=== PATIENT | female | born 1950 | race Caucasian/White ===

== ENCOUNTER → 2024-01-07 07:02 | Outpatient (REF) | payer MEDICARE, OTHER, SELFPAY | LOC: RAD 07:02 | PROVIDERS: ATTENDING PHYSICIAN Nurse Practitioner Family | DX: R19.5 Other fecal abnormalities (principal); D63.8 Anemia in other chronic diseases classified elsewhere; R10.9 Unspecified abdominal pain; R19.4 Change in bowel habit | CPT/HCPCS: 74176 ==

== ENCOUNTER → 2024-03-12 | Outpatient (REF) | payer MEDICARE, OTHER, SELFPAY | LOC: DHSLP | PROVIDERS: ATTENDING PHYSICIAN Internal Medicine; FAMILY PHYSICIAN Emergency Medicine | DX: G47.33 Obstructive sleep apnea (adult) (pediatric) (principal) | CPT/HCPCS: 95800 ==

== ENCOUNTER → 2024-03-25 15:53 | Outpatient (REF) | payer MEDICARE, OTHER, SELFPAY ==
[2024-03-25 12:01] LABS: % Basophils 0.2 % (0-2); % Immature Granulocytes 0.1 % (0-0.5); % Lymphocytes 16.6 % (20.5-51.1); % Monocytes 9.1 % (1.7-9.3); Absolute Eosinophils 0.1 10^3/uL (0-0.7); Absolute Lymphocytes 1.3 10^3/uL (1.2-3.4); Absolute Monocytes 0.7 10^3/uL (0.1-0.6); Absolute Neutrophils 5.9 10^3/uL (1.4-6.5); Hemoglobin 10.1 g/dL (12.0-16.0); Mean Corp Hgb Conc. 33.7 g/dL (33.0-37.0); Mean Corpuscular Hgb 32.7 pg (27.0-31.0); Mean Corpuscular Volume 97.1 fL (81.0-99.0); Mean Platelet Volume 10.5 fL (7.4-10.4); Platelet Count 233 10^3/uL (130-400); Red Blood Cell Count 3.09 10^6/uL (4.20-5.40); Red Cell Dist. Width 13.2 % (11.5-14.5); White Blood Cell Count 8.1 10^3/uL (4.8-10.8)
[2024-03-25 12:49] LABS: Vitamin D, 25-OH*** 62.9 ng/mL (30-80)
== END ==
LOC: OIDL 15:53
PROVIDERS: ATTENDING PHYSICIAN Internal Medicine Hematology & Oncology
DX: D50.9 Iron deficiency anemia, unspecified (principal); N18.30 Chronic kidney disease, stage 3 unspecified
CPT/HCPCS: 82306; 85025

== ENCOUNTER 2024-03-27 03:30 | Inpatient (IN) | payer MEDICARE, OTHER, SELFPAY ==
[2024-03-26 20:47] VITALS: BP 147/65
[2024-03-26] MEDS: ZOFRAN 4 MG IV (21:22)
[2024-03-26 21:27] LABS: % Basophils 0.4 % (0-2); % Eosinophils 0.4 % (0-6); % Immature Granulocytes 0.7 % (0-0.5); % Monocytes 3.9 % (1.7-9.3); % Neutrophils 89.6 % (42.2-75.2); Absolute Eosinophils 0.1 10^3/uL (0-0.7); Absolute Immature Granulocytes 0.1 10^3/uL (0-0.05); Absolute Lymphocytes 0.6 10^3/uL (1.2-3.4); Absolute Monocytes 0.4 10^3/uL (0.1-0.6); Hematocrit 27.9 % (37.0-47.0); Mean Corp Hgb Conc. 35.8 g/dL (33.0-37.0); Mean Corpuscular Hgb 32.8 pg (27.0-31.0); Mean Corpuscular Volume 91.5 fL (81.0-99.0); Mean Platelet Volume 10.7 fL (7.4-10.4); Nucleated Red Blood Cells % 0 %; Platelet Count 222 10^3/uL (130-400); Red Blood Cell Count 3.05 10^6/uL (4.20-5.40); Red Cell Dist. Width 13.2 % (11.5-14.5); White Blood Cell Count 11.2 10^3/uL (4.8-10.8)
[2024-03-26] MEDS: NSS 1000 IV (21:28)
[2024-03-26 21:38] LABS: ALT (SGPT) 18 U/L (0-35); AST (SGOT) 20 U/L (14-36); Albumin 4.2 g/dl (3.5-5.0); Alkaline Phosphatase 96 U/L (38-126); Blood Urea Nitrogen 44 mg/dl (7-17); Calcium 9.8 mg/dl (8.4-10.2); Carbon Dioxide 23 mmol/L (22-30); Chloride 101 mmol/L (98-107); Glucose 136 mg/dl (70-99); Potassium 4.5 mmol/L (3.5-5.1); Sodium 136 mmol/L (135-145); Total Bilirubin 0.6 mg/dl (0.2-1.3); Total Protein 6.8 g/dl (6.3-8.2); eGFR 36.12
[2024-03-26 21:39] VITALS: BMI 32.0
[2024-03-26 22:00] VITALS: BP 135/61
[2024-03-26 23:33] LABS: Urine Albumin Trace (Neg - Trace); Urine Bilirubin Negative (Negative); Urine Character Clear (Clear); Urine Color Yellow; Urine Glucose Negative (Negative); Urine Ketone Negative (Negative); Urine Leukocyte Trace (Negative); Urine Nitrite Negative (Negative); Urine Occult Blood Negative (Negative); Urine Specific Gravity 1.005 (<1.030); Urine Urobilinogen Negative (Neg - 1+)
[2024-03-26 23:43] LABS: Urine Red Blood Cell None Seen /HPF (0-2)
[2024-03-27] VITALS (8 sets, daily range): BP systolic 96–138; BP diastolic 44–71; BMI 31.1
--- NOTE | 2024-03-27 01:42 | ED.GENMED ---
History of Present Illness
General
Chief Complaint: Fever
Source: patient and family
Exam Limitations: clinical condition
Time Seen by Provider: 03/26/24 21:07
Travel History
Have you had any contact with someone who has COVID-19?: No
Do you have any symptoms of coronavirus? Fever > 100 degrees, chills, cough, shortness of breath, sore throat, loss of taste or smell, muscle aches, or headache?: No
History of Present Illness
History of Present Illness:
74-year-old female with a history of hypertension, hyperlipidemia, diabetes who presents with fever. The patient states that she has nausea as well as some abdominal discomfort. She had an iron infusion done yesterday for anemia. No back pain.
No neck pain. No rash. Patient denies cough. No runny nose or congestion
Past History
Past History
ED Past Medical History: Arrthythmia, HTN, Hypercholesterolemia and IDDM
ED Past Surgical History: Tonsilectomy
Phy Exam
Physical Exam
Physical Exam:
CONSTITUTIONAL Patient alert and oriented to person, place and time. ill-appearing. Vital signs reviewed.
HEAD atraumatic, normocephalic.
EYES eyelids normal to inspection, Pupils equally round and reactive to light, Extraocular muscles intact, Conjunctiva normal, Sclera normal.
NECK normal range of motion, Trachea midline, no jugular venous distention.
RESPIRATORY CHEST No respiratory distress noted, Chest expansion equal, Bilateral breath sounds clear.
CARDIOVASCULAR regular rate and rhythm, Heart sounds normal.
ABDOMEN mild diffuse tenderness, Bowel sounds normal. No distention.
BACK normal inspection, no obvious deformities
UPPER EXTREMITY range of motion normal, Motor strength normal, no cyanosis, no edema.
LOWER EXTREMITY range of motion normal, Motor strength normal, no cyanosis, no edema.
NEURO Speech normal, No focal motor deficits, [place] coma scale 15, Memory normal, Cranial Nerves intact to screening exam.
SKIN skin warm, dry, and normal in color.
Course
Orders/Labs/Results
Orders:
Orders
03/26/24 21:15
Complete Blood Count/With Diff Urgent
Comprehensive Metabolic Panel Urgent
Lactic Acid Q4H
Comment: CANCEL 2nd LACTIC ACID IF 1st LACTIC ACID IS LESS THAN 2
Blood Culture Q30M
LARA Source: Blood/Venous
Specimen Description:
Influenza A+B Rapid Molecular Urgent
LARA Source: Nasal Swab
Specimen Description:
03/26/24 21:22
Ondansetron Injectable [Zofran] 4 mg .ROUTE .STK-MED ONE
Ondansetron Injectable [Zofran] 4 mg IV NOW STA
03/26/24 21:27
0.9% Sodium Chloride 1000 ml [Nss] 1,000 ml IV BOLUS
03/26/24 21:45
Blood Culture Q30M
LARA Source: Blood/Venous
Specimen Description:
03/26/24 23:15
Urinalysis Reflex To Culture Urgent
Date Specimen was Collected: 03/26/24
Time Specimen was Collected: 22:47
Urine Microscopic Reflex Cult Urgent
03/27/24 00:00
CT Abd/pelvis W Iv Cont Urgent
Reason For Exam: abd pain, nausea, fever
03/27/24 01:42
0.9% Sodium Chloride 1000 ml [Nss] 1,000 ml IV BOLUS
Acetaminophen [Tylenol] 1,000 mg PO NOW STA
03/27/24 01:49
Cefepime HCl [Maxipime] 1,000 mg IV NOW STA
Vancomycin [Vancocin] 1,500 mg 0.9% Sodium Chloride [Nss] 20 ml 0.9% Sodium Chloride 250 ml [Nss] 250 ml IV NOW
03/27/24 02:00
Flush (0.9% Sodium Chloride) [Flush (Nss)] See Dose Instructions IV PER PROTOCOL
Abnormal Lab Results
03/26/24 03/26/24
21:15 23:15
WBC 11.2 H 10^3/uL
(4.8-10.8)
RBC 3.05 L 10^6/uL
(4.20-5.40)
Hgb 10.0 L g/dL
(12.0-16.0)
Hct 27.9 L %
(37.0-47.0)
MCH 32.8 H pg
(27.0-31.0)
MPV 10.7 H fL
(7.4-10.4)
Abs Immat Gran (auto) 0.1 H 10^3/uL
(0-0.05)
Absolute Neuts (auto) 10.0 H 10^3/uL
(1.4-6.5)
Absolute Lymphs (auto) 0.6 L 10^3/uL
(1.2-3.4)
Immature Gran % 0.7 H %
(0-0.5)
Neutrophils % 89.6 H %
(42.2-75.2)
Lymphocytes % 5.0 L %
(20.5-51.1)
BUN 44 H mg/dl
(7-17)
Creatinine 1.5 H mg/dL
(0.6-1.0)
Glucose 136 H mg/dl
(70-99)
Leukocyte Esterase Rfl Trace A
(Negative)
03/26/24 21:15
03/26/24 21:15
Vital Signs
Initial and Last Documented VS:
Initial Vital Signs
Temp Pulse Resp BP Pulse Ox
100.7 F H 66 16 147/65 98
03/26/24 20:47 03/26/24 20:47 03/26/24 20:47 03/26/24 20:47 03/26/24 20:47
Last Documented Vital Signs
Temp Pulse Resp BP Pulse Ox
98.9 F 106 22 131/49 96
03/27/24 00:30 03/27/24 01:00 03/27/24 01:00 03/27/24 00:00 03/27/24 00:00
MDM/Problems Addressed
MDM/Problems Addressed:
Fever
*Radiology
Radiology exam reviewed: preliminary read by ED provider (No obvious free air by CT but await official radiology read)
*Pulse Oximetry
Patient hypoxic: no
*Critical Care Note
Total Time (30-74mins, 75-104mins- exclusive of procedures): Not Applicable
Data Reviewed
Source: patient and family
Patient Management
Discussion with other providers: Hospitalist
Escalation/DeEscalation of care consider admission/obs:
Persistent fever. Await CT read. Urinalysis okay. Check chest x-ray. Give dose of antibiotics pending cultures given yesterday's infusion. Lactic borderline
ED Attending Note
-
Portions of this chart may have been created with voice recognition software.� Occasional wrong word or��sound alike� substitutions may have occurred due to the inherent limitations of voice recognition software.
Discharge Plan
Departure
Patient Disposition: Admit
Date of Disposition: 03/27/24
Time of Disposition: 01:48
Admit to: Telemetry
Presentation/result/management discussed w/ accepting MD/DO: Hospitalist
Discharge Problem:
Fever
Prescriptions:
No Action
metformin 500 mg Tablet
500 mg PO BID
sennosides [Senokot] 8.6 mg Tablet
8.6 mg PO DAILY
lisinopril 20 mg Tablet
20 mg PO DAILY
simvastatin 10 mg Tablet
10 mg PO DAILY
cyanocobalamin (vitamin B-12) [Vitamin B-12] 1,000 mcg Tablet
1,000 mcg PO Q48H
chlorthalidone 25 mg Tablet
25 mg PO DAILY
allopurinol 100 mg Tablet
100 mg PO DAILY
docusate sodium [Stool Softener] 100 mg Capsule
100 mg PO DAILY
sertraline 50 mg Tablet
50 mg PO QPM
insulin glargine [Basaglar KwikPen U-100 Insulin] 100 unit/mL (3 mL) Insulin Pen
15 unit SC DAILY
cholecalciferol (vitamin D3) [Vitamin D3] 50 mcg (2,000 unit) Capsule
50 mcg PO DAILY
Eliquis 5 mg Tablet
5 mg PO BID
Trulicity 1.5 mg/0.5 mL Pen Injector
1.5 mg SC QWEEK
levothyroxine 25 mcg Tablet
25 mcg PO DAILY
Referrals:
Regina Rae MD [Family Provider] -
Interventions
Interventions:
*Risk Screen - Suicide Last Done: 03/26/24 20:47
*General Assessment Last Done: 03/26/24 20:47
*Neglect/Abuse Screening Last Done: 03/26/24 20:47
ED- Fall Risk Assessment Last Done: 03/26/24 21:27
ED- Neurological Assessment Last Done: 03/26/24 21:26
ED-Skin Assessment Last Done: 03/26/24 21:27
Discharge Date and Time
Print Language: TONGAN
[2024-03-27] MEDS: TYLENOL 1000 MG PO (01:44)
[2024-03-27] MEDS: NSS 1000 IV ×3 (01:45→13:55)
[2024-03-27] MEDS: ZOSYN 50 IV ×2 (01:58→08:22)
--- NOTE | 2024-03-27 02:14 | HPS.HSE ---
Addendum entered and electronically signed by Daniel Jarrett MD 03/27/24 13:29:
F/u admission w/u
Laboratory Tests
03/27/24 03/27/24
02:10 07:42
Procalcitonin 0.46 H
SARS-CoV-2 Antigen Negative
Admission CXR report:
Mild left basilar atelectasis and/or pneumonia.
- Currently on Broad spect ABx
Original Note:
Family Physician
-
Family Physician: Regina Rae MD
Chief Complaint
-
fever
History of Present Illness
74M HX HTN, IDDM with Fe def anemia, s/p IV Fe infusion yesterday pw fever.
S/p IV Fe Tx yesterday for Fe def anemia by Dr Potts
[place] nausea following IV Fe Tx
Denies cough
Denied URTI like symptoms.
Vomits once at ER before CT AP
POS Nausea and abdominal discomfort. Unremarkable LFTs, NEG CT AP.
Associated with mild leucocytosis, SIRS picture and marginal hypoxia ER.
ER initiated BCx, empiric Vanco and Zosyn.
Medical History
Past Medical History
Past Medical History: Reports HTN, Hypercholesterolemia, Hypothyroidism and IDDM
Past Surgical History: Reports Tonsilectomy
Social History
Tobacco: Non-smoker
Alcohol: None
Drug: None
Family History
Family History: Not pertinent
Allergies / Home Medications
Allergies reflects when Allergies were last updated in [facility].
Home Medications with original date entered in [facility]
Allergy/Medication List:
Allergies
Allergy/AdvReac Type Severity Reaction Status Date / Time
amlodipine Allergy constipatio Verified 12/25/22 12:25
n
Home Medications
allopurinol 100 mg tablet 100 mg PO DAILY 12/25/22
apixaban 5 mg tablet (Eliquis) 5 mg PO BID 12/25/22
chlorthalidone 25 mg tablet 25 mg PO DAILY 12/25/22
cholecalciferol (vitamin D3) 50 mcg (2,000 unit) capsule (Vitamin D3) 50 mcg PO DAILY 12/25/22
cyanocobalamin (vitamin B-12) 1,000 mcg tablet (Vitamin B-12) 1,000 mcg PO Q48H 12/25/22
docusate sodium 100 mg capsule (Stool Softener) 100 mg PO DAILY 12/25/22
dulaglutide 1.5 mg/0.5 mL subcutaneous pen injector (Trulicity) 1.5 mg SC QWEEK 12/25/22
insulin glargine 100 unit/mL (3 mL) subcutaneous pen (Basaglar KwikPen U-100 Insulin) 15 unit SC DAILY 12/25/22
lisinopril 20 mg tablet 20 mg PO DAILY 12/25/22
metformin 500 mg tablet 500 mg PO BID 12/25/22
sennosides 8.6 mg tablet (Senokot) 8.6 mg PO DAILY 12/25/22
sertraline 50 mg tablet 50 mg PO QPM 12/25/22
simvastatin 10 mg tablet 10 mg PO DAILY 12/25/22
levothyroxine 25 mcg tablet 25 mcg PO DAILY 03/26/24
If medication reconciliation has not been performed, why?: Other (pending reconcilliation )
Review of Systems
-
History Source: Patient
Constitutional: Reports Fever
EENT: Reports No Symptoms
Respiratory: Denies Cough or Trouble Breathing
Cardiac: Reports No Symptoms
Abdomen/GI: Reports Abdominal Pain (discomfort ) and Nausea
: Reports No Symptoms
Skin: Reports No Symptoms
Neurological: Reports No Symptoms
Endocrine: Reports No Symptoms
Hematologic/Lymphatic: Reports No Symptoms
Psych: Reports No Symptoms
Physical Exam
Vital Signs
Vital Signs
Temp Pulse Resp BP Pulse Ox
98.9 F 106 22 131/49 96
03/27/24 00:30 03/27/24 01:00 03/27/24 01:00 03/27/24 00:00 03/27/24 00:00
Physical Exam
General: Conversant and Other (not toxic )
HEENT: NormoCephalic, Anicteric and Moist mucous membranes
Respiratory: Clear; No Wheezes, Rales or Rhonchi
Cardiac: S1/S2 and Tachycardia
Breast: Deferred by me
GI: Soft, Non Tender and Non Distended
Rectal: Deferred by Provider
Genito-urinary: Deferred by me
Musculoskeletal: No Cyanosis
Skin: Warm and Dry
Neuro: AO x 3, No Motor Deficits and Nonfocal/grossly intact
Psych: Calm
Laboratory Results
-
03/26/24 21:15
03/26/24 21:15
Laboratory Results
Lactic Acid Cancelled 03/27/24 01:15
Total Bilirubin 0.6 mg/dl (0.2-1.3) 03/26/24 21:15
AST 20 U/L (14-36) 03/26/24 21:15
ALT 18 U/L (0-35) 03/26/24 21:15
Alkaline Phosphatase 96 U/L (38-126) 03/26/24 21:15
Data Reviewed
-
CT Scan: Report Reviewed by me
Lab Data: Labs Reviewed by me
Impression/Plan
-
Reviewed VS: T102.1 ST 100s 130/50 tachypnic RR20s POx 93-96 on RA
Data
WCC 11.2
Hgb 10
BUN 44
Cr 1.5 - baseline not available
nl LFts
LA 2
NEG UA
NEG Flu A & B
BCx sent
CT AP with IV contrast
NEG for acut patho
no BWO
nl Appdx
no free airn
nl GB and pancreas
mod stool thru out colon
Pending CXR
Pending Covid Ag
Pending PCT
Last hospitalist admission: No prior hospitalist admission
ASSESSMENT & PLAN
Pending Rx reconciliation
SIRS like picture: acute onset of unclear origin
Asso with marginal hypoxia and leucocytosis
NEG CT AP
- BCx sent
- agree with empiric Vanco and Zosyn
- IVF
- check Covid Ag, PCT
- check CXR
- observe VSS
- Trend WCC and fever curve
- ID consult
Renal insufficiency of uncertain chronicity - LINDA vs LINDA on CKD vs CKD
No prior data in [facility]
- avoid nephrotoxic
- Hold Chlorthalidone
- Hold Lisinopril
- Hold Metformin
- NS IVF and observe Cr
Fe def anemia - ? underlying CKD
S/p IV Fe tx yesterday Stable Hgb
HX wt loss
- seen Dr Delroy - Heme onco
- pending OP tumor markers per daughter
- HoB stools
- Onco consult
IDDM
- Held Metformin
- add ISS low
- cont. Lantus
Hypothyroid on LT4
HLD on Simvastatin
Chronic eliquis for perm AF
DVT Px: on chr Eliquis
Code: Full
IP TLM
[2024-03-27 02:22] LABS: COVID-19 Antigen Negative (Negative)
[2024-03-27] MEDS: VANCOCIN 540 MG IV (02:53)
--- NOTE | 2024-03-27 04:15 | PTCARENOTE ---
Received pt from ED, pt unable to walk- pulled over from stretcher. No complaints of pain- daughter at bedside to help with questions- IVF as ordered
[2024-03-27 07:42] LABS: Glucose - Point of Care 162 mg/dl (70-99)
[2024-03-27 08:07] LABS: Lactic Acid 1.5 mmol/L (0.7-2.0)
[2024-03-27] MEDS: ELIQUIS 5 MG PO ×2 (08:22→20:36)
[2024-03-27] MEDS: NOVOLOG FLEXPEN-LOW RESISTANCE 1 UNITS SC ×3 (08:23→17:14)
[2024-03-27 08:35] LABS: Procalcitonin 0.46 ng/ml (0.0-0.25)
--- NOTE | 2024-03-27 08:42 | W.PN.HOSP.TC ---
Today's Communication/Plan
-
see bold
Assessment / Plan
Assessment / Plan
HPI: 74-year-old female with diabetes mellitus, atrial fibrillation on Eliquis, CKD, who had recent workup for fatigue. She was found to have iron deficient anemia. On March 25, she had her first IV iron infusion. Afterward she developed nausea and
GI upset. Later she developed fever. She came to the hospital yesterday. Her white count was 11.2. Temperature max was 102. Urine analysis negative. Procalcitonin 0.46. Blood cultures pending. CAT scan of the abdomen and pelvis
unremarkable.Chest x-ray shows mild patchy left basilar airspace opacities. Of note the CAT scan of the abdomen pelvis showed lung bases are clear of an acute process. There was moderate stool in the colon. no cough or shortness of breath. No
diarrhea. She had 2 bowel movements yesterday and the abdominal discomfort resolved. No ill contacts. She is originally from [facility] and has not gone back for a long time. No urinary symptoms. She is feeling better today. Nausea resolved.
She is eating her lunch.
#Fever
#Acute hypoxic respiratory insufficiency
#Mild leukocytosis
No documented hypoxia, but family and nursing staff reports patient was satting 87-88% on room air
Currently on 2 L, wean as tolerated
Chest x-ray shows possible pneumonia, CT shows lungs are clear
Appreciate ID input, suspect secondary to IV iron reaction, continue Rocephin/azithromycin until cultures return is negative
Influenza A&B negative, urine analysis negative. Elevated PCT can be due to kidney disease.
Follow-up on blood cultures, trend fever and white count
#Constipation
Start laxatives
#Chronic normocytic anemia
Sees Dr Potts - Heme onco
Appreciate hematology input, secondary to chronic kidney disease, iron deficiency, history of B12 deficiency
Hemoglobin stable
Check B12/folic acid levels
Follow-up with GI in the office for outpatient colonoscopy that is scheduled for April
#LINDA versus CKD
Creatinine 1.7 today, was 1.5 upon admission, we do not have a baseline for her
Stop vancomycin. Hold chlorthalidone, lisinopril, metformin
Continue gentle IV fluids, trend creatinine, no nephrotoxic drugs or NSAIDs
Bladder scan protocol, check renal bladder ultrasound
Type 2 diabetes
Continue Lantus, diabetic diet, sliding scale insulin
#Permanent atrial fibrillation
Continue Eliquis
#Hypothyroidism
Continue Synthroid
DVT prophylaxis�Eliquis
Full code
Total time spent to see the patient on the floor, examine the patient, review data and lab results, discuss treatment plan with patient, nursing staff around 35 minutes.
Physical Exam
General: Appears to not feel well, no acute distress
HEENT: Normocephalic, Atraumatic, EOMI, MMM
Respiratory: Clear to Auscultation bilaterally
Cardiac: Normal S1/S2, Regular Rate and Rhythm
GI: Soft, Nontender, Nondistended, Normal Bowel Sounds
Extremities: No Clubbing, Cyanosis, or Edema
Neuro: Nonfocal/Grossly Intact
Psych: Calm, Cooperative
Derm: No Visible lesions
Anticipated Discharge: 24 - 48 hours
Subjective/Interval History
-
Date of Service: March 27, 2024
Patient had nausea and vomiting yesterday, resolved. She continues to have fever, improved from prior. Denies pain. Denies dysuria. No shortness of breath.
Objective Data
-
Labs:
Laboratory Results
03/26/24
21:15
WBC 11.2 H
Hgb 10.0 L
Hct 27.9 L
Plt Count 222
Sodium 136
Potassium 4.5
Chloride 101
Carbon Dioxide 23
BUN 44 H
Creatinine 1.5 H
Glucose 136 H
Calcium 9.8
Total Bilirubin 0.6
AST 20
ALT 18
Alkaline Phosphatase 96
Vital Signs:
Vital Signs
Temp Pulse Resp BP Pulse Ox
97.8 F 61 18 96/44 98
03/27/24 07:00 03/27/24 07:00 03/27/24 07:00 03/27/24 07:00 03/27/24 07:00
I&O
03/26/24 03/27/24 03/28/24
06:59 06:59 06:59
Intake Total 0 / 0
Balance 0 / 0
[2024-03-27 09:04] LABS: Glycohemoglobin (HgbA1c) 7.1 % (4.0-5.6)
[2024-03-27 10:10] LABS: % Basophils 0.3 % (0-2); % Eosinophils 0.4 % (0-6); % Immature Granulocytes 0.4 % (0-0.5); % Lymphocytes 3.3 % (20.5-51.1); % Monocytes 1.7 % (1.7-9.3); % Neutrophils 93.9 % (42.2-75.2); Absolute Lymphocytes 0.3 10^3/uL (1.2-3.4); Absolute Monocytes 0.2 10^3/uL (0.1-0.6); Absolute Neutrophils 9.6 10^3/uL (1.4-6.5); Hematocrit 27.2 % (37.0-47.0); Hemoglobin 9.3 g/dL (12.0-16.0); Mean Corp Hgb Conc. 34.2 g/dL (33.0-37.0); Mean Corpuscular Hgb 32.5 pg (27.0-31.0); Mean Corpuscular Volume 95.1 fL (81.0-99.0); Mean Platelet Volume 10.4 fL (7.4-10.4); Nucleated Red Blood Cells % 0 %; Platelet Count 184 10^3/uL (130-400); Red Blood Cell Count 2.86 10^6/uL (4.20-5.40); Red Cell Dist. Width 13.4 % (11.5-14.5); White Blood Cell Count 10.2 10^3/uL (4.8-10.8)
[2024-03-27 10:25] LABS: Blood Urea Nitrogen 42 mg/dl (7-17); Calcium 8.7 mg/dl (8.4-10.2); Carbon Dioxide 23 mmol/L (22-30); Chloride 105 mmol/L (98-107); Estimated Creatinine Clearance 29 ml/min; Glucose 121 mg/dl (70-99); Potassium 4.5 mmol/L (3.5-5.1); Sodium 137 mmol/L (135-145); eGFR 31.08
[2024-03-27] MEDS: TYLENOL 650 MG PO (10:45)
--- NOTE | 2024-03-27 11:06 | PHA.VAN.IN ---
Assessment
- Assessment
Renal Function: Unknown baseline
Maximum Temperature: 102.1
Minimum Temperature: 97.8
Concomitant Antimicrobials: Piperacillin-tazobactam
Plan
- Plan
Initial / Loading Dose: Vanc 2000mg 03/27 at 0253
Maintenance Regimen: Dose by level
Monitoring: R 03/28 with AM labs
Pharmacokinetics Vancomycin I
- -
Patient Age: 74
Patient Sex: Female
Vancomycin Day #: 1
Indication: Other
Requesting Provider: Luiza
Height / Weight:
Height 5 ft 3 in
Actual Weight 79.52 kg
IBW in k.4
Adjusted BW in k.2
Pertinent Past Medical History: LINDA. Unknown baseline. Possible underlying CKD. SIRS
- Vital Signs / Lab Results
Temp Pulse Resp BP Pulse Ox
97.8 F 61 18 96/44 98
03/27/24 07:00 03/27/24 07:00 03/27/24 07:00 03/27/24 07:00 03/27/24 07:00
Lab Results - Hematology
03/26/24 03/27/24
21:15 09:56
WBC 11.2 H 10.2
Lab Results - Chemistry
03/26/24 03/27/24 03/27/24
21:15 08:44 09:55
BUN 44 H Cancelled 42 H
Creatinine 1.5 H Cancelled 1.7 H
Estimated Creat Clear Cancelled 29
Albumin 4.2 Cancelled
03/26/24 03/27/24 03/27/24
21:15 01:15 07:42
Lactic Acid 2.0 Cancelled 1.5
03/27/24 03/27/24
07:42 07:42
Lactic Acid Cancelled Cancelled
Lab Results - Urine
03/26/24
23:15
Urine Nitrite (Reflex) Negative
Leukocyte Esterase Rfl Trace A
Urine WBC (Reflex) 3-5
Ur Squamous Epith Cells 3-5
Microbiology Results
03/26/24 21:15 Influenza Types A & B (MICHAEL) - Final
Nasal Swab Negative for Influenza A & B, NAAT
Negative results must be combined with clinical observations
and patient history.
Nucleic Acid Amplification test (NAAT)performed on the
[employer] NOW platform.
--- NOTE | 2024-03-27 11:21 | CON.ONC ---
Impression
Impression
fever
pneumonia
abdominal discomfort
anemia - multifactorial - CKD/ iron deficiency
h/o B12 deficiency
Plan
Plan
1. Fever - possible pneumonia on CXR
-CT w/o signfiicant abnormalities
-CXR w/ pneumonia
-cultures pending
-antibiotics as per primary service/ ID
1. Anemia - CKD/ iron def/ h/o B12 deficiency
-hemoglobin stable
-check B12/ folic acid levels
-has established care w/ GI - w/ colonoscopy apparently scheduled for April - could consider GI consultation as inpt w/ abdominal discomfort/ anemia - iron deficiency
-no further IV iron in setting of possible infection
-continue to follow CBC
will continue to follow with you
Patient History
History of Present Illness
74y/o female seen in hematology consultation regarding h/o multifactorial anemia in the setting of CKD and iron deficiency. The patient is known to Dr. Potts as an outpt and had been receiving IV iron supplementation - last 03/25.
She presented to the [place] ER on the evening of 03/26 w/ fever, nausea and abdominal discomfort. CT imaging revealed no significant abnormality in abdomen or pelvis. CXR revelaed mild left basilar atelectasis and/or pneumonia. Blood and urine
cultures pending. She has been placed on vancomycin and zosyn w/ ID consult pending.
Clinically, she appears comfortable. Her daughter is present and translating due to the patient speaking Malagasy. Denies pain. She is tired. No fevers this am.
Past-Medical/Surgical History
PMH:
anemia - multifactorial - CKD, iron deficiency
afib
HTN
DM
hyperlipidemia
hypothyroid
PSH:
tonsillectomy
SH: no tobacco, no ETOH
FH: noncontributory
Allergies: amlodipine
Patient Medication
�Medication �Instructions �Recorded �Confirmed �Last Taken �Type
allopurinol 100 mg tablet 100 mg PO DAILY 12/25/22 12/25/22 12/24/22 14:00 History
apixaban 5 mg tablet (Eliquis) 5 mg PO BID 12/25/22 12/25/22 12/25/22 10:00 History
chlorthalidone 25 mg tablet 25 mg PO DAILY 12/25/22 12/25/22 12/24/22 08:00 History
cholecalciferol (vitamin D3) 50 50 mcg PO DAILY 12/25/22 12/25/22 12/24/22 08:00 History
mcg (2,000 unit) capsule (Vitamin
D3)
cyanocobalamin (vitamin B-12) 1,000 mcg PO Q48H 12/25/22 12/25/22 12/23/22 08:00 History
1,000 mcg tablet (Vitamin B-12)
docusate sodium 100 mg capsule 100 mg PO DAILY 12/25/22 03/26/24 12/24/22 08:00 History
(Stool Softener)
dulaglutide 1.5 mg/0.5 mL 1.5 mg SC QWEEK 12/25/22 12/25/22 12/23/22 08:00 History
subcutaneous pen injector
(Trulicity)
insulin glargine 100 unit/mL (3 15 unit SC DAILY 12/25/22 12/25/22 12/24/22 19:00 History
mL) subcutaneous pen (Basaglar
KwikPen U-100 Insulin)
lisinopril 20 mg tablet 20 mg PO DAILY 12/25/22 03/26/24 12/25/22 10:00 History
metformin 500 mg tablet 500 mg PO BID 12/25/22 03/26/24 12/24/22 20:00 History
sennosides 8.6 mg tablet (Senokot) 8.6 mg PO DAILY 12/25/22 03/26/24 12/23/22 08:00 History
sertraline 50 mg tablet 50 mg PO QPM 12/25/22 03/26/2423 19:00 History
simvastatin 10 mg tablet 10 mg PO DAILY 12/25/22 03/26/24 12/24/22 19:00 History
levothyroxine 25 mcg tablet 25 mcg PO DAILY 03/26/24 03/26/24 Unknown History
Active Medications
Generic Name Dose Route Start Last Admin
Trade Name Freq PRN Reason Stop Dose Admin
Acetaminophen 650 mg 03/27/24 04:01 03/27/24 10:45
Acetaminophen 325 Mg Tablet PO 04/24/24 04:00 650 mg
Q4HPRN PRN Administration
VALENTIN/mild pain/temp > 100.4 F
Acetaminophen 650 mg 03/27/24 04:01
Acetaminophen 650 Mg Rectal Suppository RECTAL 04/24/24 04:00
Q4HPRN PRN
VALENTIN/ mild pain/ temp >/= 100.4F
Apixaban 5 mg 03/27/24 08:00 03/27/24 08:22
Apixaban (Eliquis) 5 Mg Tablet PO 04/24/24 07:59 5 mg
BID OMAR Administration
Dextrose 12.5 grams 03/27/24 04:01
Dextrose 50% (0.5 Grams/Ml) 50 Ml Syringe IV 04/24/24 04:00
[id number] PRN
hypoglycemia
Protocol
Glucagon 1 mg 03/27/24 04:01
Glucagon 1 Mg Vial IM 04/24/24 04:00
PRN PRN
hypoglycemia
Protocol
Sodium Chloride 1,000 mls @ 100 mls/hr 03/27/24 04:01 03/27/24 04:31
Nss IV 1,000 mls
.Q10H OMAR Administration
Vancomycin HCl 1 each/ Device 0 mls @ 0 mls/hr 03/27/24 04:01
IV
PER PROTOCOL OMAR
Protocol
As Directed
Piperacillin Sod/Tazobactam Sod 3.375 gram in 50 mls @ 100 mls/hr 03/27/24 08:00 03/27/24 08:22
Zosyn IV 50 mls
Q6H OMAR Administration
Insulin Aspart 0 units 03/27/24 07:30 03/27/24 08:23
Insulin Aspart Low Resistance 300 Units/3 Ml Pen.Injctr SC 04/24/24 07:29 1 units
AC OMAR Administration
Protocol
Sodium Chloride 0 flush 03/27/24 02:00
Sodium Chloride 0.9% (Flush) Syringe IV 04/24/24 01:59
PER PROTOCOL OMAR
Review of Systems
-
ROS as per HPI.
Physical Exam
-
General: Well Developed and No Apparent Distress
Cardiology: Normal Sinus Rhythm
Pulmonary: Clear
GI: Soft
Neurology: Non Focal
Labs
Lab Results
WBC 10.2 10^3/uL (4.8-10.8) 03/27/24 09:56
RBC 2.86 10^6/uL (4.20-5.40) L 03/27/24 09:56
Hgb 9.3 g/dL (12.0-16.0) L 03/27/24 09:56
Hct 27.2 % (37.0-47.0) L 03/27/24 09:56
MCV 95.1 fL (81.0-99.0) 03/27/24 09:56
MCH 32.5 pg (27.0-31.0) H 03/27/24 09:56
MCHC 34.2 g/dL (33.0-37.0) 03/27/24 09:56
RDW 13.4 % (11.5-14.5) 03/27/24 09:56
Plt Count 184 10^3/uL (130-400) 03/27/24 09:56
MPV 10.4 fL (7.4-10.4) 03/27/24 09:56
Abs Immat Gran (auto) 0.0 10^3/uL (0-0.05) 03/27/24 09:56
Absolute Neuts (auto) 9.6 10^3/uL (1.4-6.5) H 03/27/24 09:56
Absolute Lymphs (auto) 0.3 10^3/uL (1.2-3.4) L 03/27/24 09:56
Absolute Monos (auto) 0.2 10^3/uL (0.1-0.6) 03/27/24 09:56
Absolute Eos (auto) 0.0 10^3/uL (0-0.7) 03/27/24 09:56
Absolute Basos (auto) 0.0 10^3/uL (0-0.2) 03/27/24 09:56
Immature Gran % 0.4 % (0-0.5) 03/27/24 09:56
Neutrophils % 93.9 % (42.2-75.2) H 03/27/24 09:56
Lymphocytes % 3.3 % (20.5-51.1) L 03/27/24 09:56
Monocytes % 1.7 % (1.7-9.3) 03/27/24 09:56
Eosinophils % 0.4 % (0-6) 03/27/24 09:56
Basophils % 0.3 % (0-2) 03/27/24 09:56
Creatinine 1.7 mg/dL (0.6-1.0) H 03/27/24 09:55
Vital Signs
Vital Signs
Temp Pulse Resp BP Pulse Ox
97.8 F 61 18 96/44 98
03/27/24 07:00 03/27/24 07:00 03/27/24 07:00 03/27/24 07:00 03/27/24 07:00
[2024-03-27 12:31] LABS: Glucose - Point of Care 174 mg/dl (70-99)
--- NOTE | 2024-03-27 12:36 | CON.ID ---
Consultation
-
Date/Time Consultation Requested: March 27, 2024 0401
Date/Time Consultation Performed: March 27, 2024 1235
Requesting Provider: Dr. Daniel Jarrett
Performing Provider: Dr. Caty Chaney
Reason for Consultation: SIRS like picture
Chief Complaint / Past History
Chief Complaint
Fever, GI upset after IV iron transfusion
History of Present Illness
History obtained from the patient, daughter and at bedside. She is a 74-year-old female with diabetes mellitus, atrial fibrillation on Eliquis, CKD, who had recent workup for fatigue. She was found to have iron deficient anemia. On March
, she had her first IV iron infusion. Afterward she developed nausea and GI upset. Later she developed fever. She came to the hospital yesterday. Her white count was 11.2. Temperature max was 102. Urine analysis negative. Procalcitonin
0.46. Blood cultures pending. CAT scan of the abdomen and pelvis unremarkable.Chest x-ray shows mild patchy left basilar airspace opacities. Of note the CAT scan of the abdomen pelvis showed lung bases are clear of an acute process. There was
moderate stool in the colon. no cough or shortness of breath. No diarrhea. She had 2 bowel movements yesterday and the abdominal discomfort resolved. No ill contacts. She is originally from [facility] and has not gone back for a long time. No
urinary symptoms. She is feeling better today. Nausea resolved. She is eating her lunch.
Past History
Additional Past Medical History:
Diabetes mellitus
Atrial fibrillation on Eliquis
Hypertension
Iron deficient anemia
hypothyroidism
CKD
anxiety/depression
Allergy History:
amlodipine Allergy (Verified 12/25/22 12:25)
constipation
Medications Reviewed: Yes
Current Antibiotics:
Ceftriaxone
Azithromycin po
s/p Vancomycin
s/p Zosyn
Social History
Tobacco: Non-Smoker
Alcohol: None
Drug: None
Personal:
Living: With Family
Family History
Family History: Not Pertinent
Review of Systems
Review of Systems
General: Negative Chills
HEENT: Negative Sinus Problems, Headache or Pharyngitis
Cardiovascular: Negative Chest Pain, Dyspnea or Edema
Respiratory: Negative Dyspnea, Cough or Sputum Production
Gasteroenterology: Vomiting (x1)
Genital / Urological: Negative Dysuria or Flank Pain
Skin / Hair / Nails: Negative Rash
Neurological: Negative Headache or Dizziness
All systems: All other systems were reviewed and were negative
Vital Signs
Temp Pulse Resp BP Pulse Ox
99.9 F 68 18 121/71 100
03/27/24 11:00 03/27/24 11:00 03/27/24 11:00 03/27/24 11:00 03/27/24 11:00
Selected Entries
03/26/24
22:36
Temp 102.1 F H
Physical Exam
Physical Exam
Constitutional: No Acute Distress and Comfortable
Eyes: No Conjunctival Hemorrhage and Sclera Anicteric
Cardiovascular: Regular Rate and S1/S2
Pulmonary: Clear and Non Labored; Negative Rales
Gastrointestinal: Soft, Non Tender, Non Distended and Normal Bowel Sounds
Genito-Urinary: Negative CVA Tenderness
Extremities: Negative Edema
Skin: Negative Rash
Neurological: AO x 3
Lab / Diagnostic Study Results
03/27/24 09:56
03/27/24 09:55
Abs Immat Gran (auto) 0.0 10^3/uL (0-0.05) 03/27/24 09:56
Absolute Neuts (auto) 9.6 10^3/uL (1.4-6.5) H 03/27/24 09:56
Absolute Lymphs (auto) 0.3 10^3/uL (1.2-3.4) L 03/27/24 09:56
Absolute Monos (auto) 0.2 10^3/uL (0.1-0.6) 03/27/24 09:56
Absolute Basos (auto) 0.0 10^3/uL (0-0.2) 03/27/24 09:56
Immature Gran % 0.4 % (0-0.5) 03/27/24 09:56
Neutrophils % 93.9 % (42.2-75.2) H 03/27/24 09:56
Lymphocytes % 3.3 % (20.5-51.1) L 03/27/24 09:56
Monocytes % 1.7 % (1.7-9.3) 03/27/24 09:56
Eosinophils % 0.4 % (0-6) 03/27/24 09:56
Basophils % 0.3 % (0-2) 03/27/24 09:56
Lactic Acid 1.5 mmol/L (0.7-2.0) 03/27/24 07:42
Lactic Acid Cancelled 03/27/24 07:42
Lactic Acid Cancelled 03/27/24 07:42
Procalcitonin 0.46 ng/ml (0.0-0.25) H 03/27/24 07:42
Ur Squamous Epith Cells 3-5 /LPF (Few) 03/26/24 23:15
Microbiology Results
Micro:
03/27/24 01:58 Blood Culture - Pending
Blood/Venous
03/26/24 21:15 Influenza Types A & B (MICHAEL) - Final
Nasal Swab Negative for Influenza A & B, NAAT
Negative results must be combined with clinical observations
and patient history.
Nucleic Acid Amplification test (NAAT)performed on the
[employer] platform.
03/26/24 21:15 Blood Culture - Pending
Blood/Venous
03/27/24 CT a/p w IV: No significant acute abnormality identified in the abdomen or pelvis, as described above. Mild to moderate diffuse colonic stool burden may reflect constipation.
03/27/24 CXR: Mild left basilar atelectasis and/or pneumonia.
Assessment / Plan
# Fever, nausea, GI upset after first time IV iron infusion.
- Suspect reaction to IV iron.
- Await blood cx's
- UA neg.
- Follow temps.
# Low suspicion for CAP
- CXR with mild left base opacity
but patient without respiratory symptoms
In addition, CT a/p showed lung bases clear of acute process.
Elevated procalcitonin can be false positive from renal impairment.
If bcx neg, dc ceftriaxone/azithro vs deescalate to short course doxycycline 100mg po bid through 03/30/24.
[2024-03-27 13:25] LABS: Folate 13.2 ng/ml (2.76-20); Vitamin B12 527 pg/ml (239-931)
[2024-03-27] MEDS: STERILE WATER FOR INJECTION 10 ML IV (13:45)
[2024-03-27] MEDS: ROCEPHIN 1000 MG IV (13:45)
[2024-03-27] MEDS: ZITHROMAX 500 MG PO (13:46)
--- NOTE | 2024-03-27 16:01 | PTCARENOTE ---
Patient awake alert and oriented X4, tele monitor shows patient rhythm as dash/afib with the lowest heart rate at 39bpm. MD aware, ekg ordered. Will continue to monitor.
[2024-03-27 16:30] LABS: Glucose - Point of Care 195 mg/dl (70-99)
[2024-03-27] MEDS: MIRALAX 17 GRAMS PO ×2 (17:13→21:39)
[2024-03-27] MEDS: MIRALAX PO (20:36)
[2024-03-27 21:20] LABS: Glucose - Point of Care 185 mg/dl (70-99)
[2024-03-28] VITALS (7 sets, daily range): BP systolic 111–171; BP diastolic 46–76; PULSE 62; BMI 31.6
[2024-03-28] MEDS: NSS 1000 IV ×2 (00:02→08:28)
[2024-03-28 07:30] LABS: % Basophils 0.6 % (0-2); % Eosinophils 2.9 % (0-6); % Immature Granulocytes 0.7 % (0-0.5); % Lymphocytes 9.6 % (20.5-51.1); % Monocytes 7.4 % (1.7-9.3); % Neutrophils 78.8 % (42.2-75.2); Absolute Eosinophils 0.2 10^3/uL (0-0.7); Absolute Immature Granulocytes 0.1 10^3/uL (0-0.05); Absolute Lymphocytes 0.7 10^3/uL (1.2-3.4); Absolute Monocytes 0.5 10^3/uL (0.1-0.6); Absolute Neutrophils 5.5 10^3/uL (1.4-6.5); Hematocrit 24.6 % (37.0-47.0); Hemoglobin 8.3 g/dL (12.0-16.0); Mean Corp Hgb Conc. 33.7 g/dL (33.0-37.0); Mean Corpuscular Hgb 32.2 pg (27.0-31.0); Mean Corpuscular Volume 95.3 fL (81.0-99.0); Nucleated Red Blood Cells % 0 %; Platelet Count 144 10^3/uL (130-400); Red Blood Cell Count 2.58 10^6/uL (4.20-5.40); Red Cell Dist. Width 13.6 % (11.5-14.5)
[2024-03-28 07:54] LABS: Blood Urea Nitrogen 42 mg/dl (7-17); Calcium 8.4 mg/dl (8.4-10.2); Carbon Dioxide 20 mmol/L (22-30); Chloride 108 mmol/L (98-107); Estimated Creatinine Clearance 31 ml/min; Glucose 124 mg/dl (70-99); Magnesium 1.4 mg/dl (1.6-2.3); Phosphorus 3.2 mg/dl (2.5-4.5); Sodium 137 mmol/L (135-145); eGFR 33.42
--- NOTE | 2024-03-28 08:02 | W.PN.HOSP.TC ---
Today's Communication/Plan
-
see bold
Assessment / Plan
Assessment / Plan
HPI: 74-year-old female with diabetes mellitus, atrial fibrillation on Eliquis, CKD, who had recent workup for fatigue. She was found to have iron deficient anemia. On March 25, she had her first IV iron infusion. Afterward she developed nausea and
GI upset. Later she developed fever. She came to the hospital yesterday. Her white count was 11.2. Temperature max was 102. Urine analysis negative. Procalcitonin 0.46. Blood cultures pending. CAT scan of the abdomen and pelvis
unremarkable.Chest x-ray shows mild patchy left basilar airspace opacities. Of note the CAT scan of the abdomen pelvis showed lung bases are clear of an acute process. There was moderate stool in the colon. no cough or shortness of breath. No
diarrhea. She had 2 bowel movements yesterday and the abdominal discomfort resolved. No ill contacts. She is originally from [facility] and has not gone back for a long time. No urinary symptoms. She is feeling better today. Nausea resolved.
She is eating her lunch.
#Fever, nausea, GI upset status post first IV iron infusion
Appreciate ID input, suspect reaction to IV iron, blood cultures negative to date, urine analysis negative, fever resolved
Consult PT
#Leukocytosis
Acute hypoxic respiratory insufficiency ruled out, patient satted 91% on room air
Chest x-ray shows mild left base opacity, suspect atelectasis
Appreciate ID input, low suspicion for community-acquired pneumonia
CT abdomen and pelvis shows lung bases clear of acute process
Elevated procalcitonin can be from renal impairment
ID recommends transitioning from Rocephin/azithromycin to doxycycline 100 mg twice a day through 03/30/2024.
#Chronic normocytic anemia
Sees Dr Potts - Heme onco
Appreciate hematology input, secondary to chronic kidney disease, iron deficiency, history of B12 deficiency
B12/folic acid normal
Hemoglobin 8.3 today, was 9.3 yesterday
Denies any black or bloody stools, has not had a bowel movement since admission
Check stool guaiac
Follow-up with GI in the office for outpatient colonoscopy that is scheduled for April
#Permanent atrial fibrillation with slow ventricular response
Continue Eliquis
Patient's heart rate dropped to the 40s, consult cardiology, patient sees Dr. Pearson
#Constipation
Started laxatives
#Stage IIIb chronic kidney disease
Creatinine 1.6 today, about her baseline of 1.5
Type 2 diabetes
Continue Lantus, diabetic diet, sliding scale insulin
#Hypothyroidism
Continue Synthroid
DVT prophylaxis�Eliquis
Full code
Updated family at bedside 03/28
Total time spent to see the patient on the floor, examine the patient, review data and lab results, discuss treatment plan with patient, nursing staff around 51 minutes.
Physical Exam
General: No acute distress
HEENT: Normocephalic, Atraumatic, EOMI, MMM
Respiratory: Clear to Auscultation bilaterally
Cardiac: Normal S1/S2, Regular Rate and Rhythm
GI: Soft, Nontender, Nondistended, Normal Bowel Sounds
Extremities: No Clubbing, Cyanosis, or Edema
Neuro: Nonfocal/Grossly Intact
Psych: Calm, Cooperative
Derm: No Visible lesions
Anticipated Discharge: 24 - 48 hours
Subjective/Interval History
-
Date of Service: March 27, 2024
Patient reports feeling better today. Fever resolved. She has chronic lightheadedness when going from sitting to standing, unchanged from prior. Denies black or bloody stools. No vomiting.
Objective Data
-
Labs:
Laboratory Results
03/27/24 03/27/24 03/27/24
08:44 09:55 09:56
WBC 10.2
Hgb 9.3 L
Hct 27.2 L
Plt Count 184
Sodium Cancelled 137
Potassium Cancelled 4.5
Chloride Cancelled 105
Carbon Dioxide Cancelled 23
BUN Cancelled 42 H
Creatinine Cancelled 1.7 H
Glucose Cancelled 121 H
Calcium Cancelled 8.7
Total Bilirubin Cancelled
AST Cancelled
ALT Cancelled
Alkaline Phosphatase Cancelled
Vital Signs:
Vital Signs
Temp Pulse Resp BP Pulse Ox
98.1 F 57 18 104/51 98
03/27/24 15:00 03/27/24 15:00 03/27/24 15:00 03/27/24 15:00 03/27/24 15:00
I&O
03/26/24 03/27/24 03/28/24
06:59 06:59 06:59
Intake Total 0 / 0
Balance 0 / 0
[2024-03-28 08:10] LABS: Glucose - Point of Care 137 mg/dl (70-99)
[2024-03-28] MEDS: NOVOLOG FLEXPEN-LOW RESISTANCE SC (08:21)
[2024-03-28] MEDS: ELIQUIS 5 MG PO ×2 (08:27→19:47)
[2024-03-28] MEDS: MIRALAX 17 GRAMS PO ×2 (08:27→19:46)
[2024-03-28] MEDS: MAGNESIUM SULFATE 50 IV (08:27)
[2024-03-28] MEDS: ZITHROMAX 500 MG PO (08:27)
[2024-03-28 10:50] LABS: Reticulocyte Count 2.1 % (0.4-2.8)
--- NOTE | 2024-03-28 11:21 | W.PN.ID1 ---
Date of Service
Date of Service: March 28, 2024
Today's Communication
Transition to short course doxycycline 100mg po bid
Assessment / Plan
# Fever, nausea, GI upset after first time IV iron infusion.
- Suspect reaction to IV iron.
- blood cx's neg to date
- UA neg.
- Fever resolved.
# Low suspicion for CAP
- CXR with mild left base opacity- suspect atelectasis
but patient without respiratory symptoms
In addition, CT a/p showed lung bases clear of acute process.
Elevated procalcitonin can be false positive from renal impairment.
Deescalate ceftriaxone/azithro to short course doxycycline 100mg po bid through 03/30/24.
#Additional Past Medical History:
Diabetes mellitus
Atrial fibrillation on Eliquis
Hypertension
Iron deficient anemia
hypothyroidism
CKD
anxiety/depression
Chief Complaint
-: Fever
Subjective / Review of Systems
and daughter at bedside.
Pt w/o complaints. Noted be bradycardic without symptoms.
Vital Signs / Physical Exam
Vital Signs
Vital Signs
Temp Pulse Resp BP Pulse Ox
98.6 F 53 14 136/59 100
03/28/24 07:25 03/28/24 07:25 03/28/24 07:25 03/28/24 07:25 03/28/24 07:25
Physical Exam
Constitutional: No Acute Distress and Comfortable
Cardiovascular: Irregular Rate
Pulmonary: Clear
Gastrointestinal: Non Tender
Neurological: AO x 3
Objective Data
Lab Data
Lab Results
03/28/24 06:36
03/28/24 06:36
Estimated Creat Clear 31 ml/min 03/28/24 06:36
Lactic Acid Cancelled 03/27/24 16:01
Total Bilirubin Cancelled 03/27/24 08:44
AST Cancelled 03/27/24 08:44
ALT Cancelled 03/27/24 08:44
Alkaline Phosphatase Cancelled 03/27/24 08:44
Most recent labs reviewed.
Micro Results:
03/26/24 23:15 Legionella Urinary Antigen - Final
Urine Negative for Legionella pneumophila Serogroup 1 antigen.
A negative result does not rule out the possiblity of
Legionella infection due to other serogroups or species of
Legionella. Clinical correlation is recommended.
Streptococcus pneumoniae Antigen (M - Final
Negative for Streptococcus pneumoniae antigen.
A negative result does not exclude infection with
Streptococcus pneumoniae. Clinical correlation is
recommended.
03/27/24 01:58 Blood Culture - Preliminary
Blood/Venous No Growth in 24 hours- Final report to follow
03/26/24 21:15 Blood Culture - Preliminary
Blood/Venous No Growth in 24 hours- Final report to follow
03/26/24 21:15 Influenza Types A & B (MICHAEL) - Final
Nasal Swab Negative for Influenza A & B, NAAT
Negative results must be combined with clinical observations
and patient history.
Nucleic Acid Amplification test (NAAT)performed on the
[employer] platform.
03/27/24 CT a/p w IV: No significant acute abnormality identified in the abdomen or pelvis, as described above. Mild to moderate diffuse colonic stool burden may reflect constipation.
03/27/24 CXR: Mild left basilar atelectasis and/or pneumonia.
[2024-03-28 11:37] LABS: Glucose - Point of Care 169 mg/dl (70-99)
[2024-03-28] MEDS: VIBRAMYCIN 100 MG PO ×2 (11:59→19:47)
[2024-03-28] MEDS: NOVOLOG FLEXPEN-LOW RESISTANCE 1 UNITS SC (12:00)
[2024-03-28] MEDS: SENOKOT-S 2 TABLET PO ×2 (13:07→19:47)
--- NOTE | 2024-03-28 16:16 | CM ---
manager fund reviewed patient's chart and met with patient and patient lives with her daughter in a multilevel home with 4 steps to enter, patient is independent with adl's and ambulation, no dme, patient does not drive, patient's daughter assist
with shopping. Patient has a prescription plan and uses [facility].
PCP: Dr. Rae
Plan; Home when stable, no needs.
--- NOTE | 2024-03-28 16:33 | CON.CAR ---
Consultation
Consultation Request
Date/Time Consultation Requested: 03/28/2024 at 1300
Date/Time Consultation Performed: 03/28/2024 at 1700
Requesting Provider: Dr Danny Soliz
Performing Provider: Luis Long MD
Reason for Consultation: Atrial fibrillation with slow ventricular response
Medical History
-
Chief Complaint: Fever
History of Present Illness:
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 Her daughter is a nurse at [employer] stroke unit. She is followed by Dr. Márquez with persistent/permanent atrial fibrillation with a slow ventricular
response despite the absence of beta-blockers and calcium blockers. The possibility of pacemaker implantation has been discussed in the past. Mrs. Pugh was admitted with fever and possible pneumonia/SIRS. On the monitor, she has been noted to be
bradycardic in atrial fibrillation with rates occasionally into the 30s. She has not fallen or had syncope. She has some fatigue but denies dyspnea. She is at times unsteady on her feet and her daughter wonders if she is having symptoms related
to bradycardia.
Past Medical History
Past Medical History: Arrhythmias (Persistent/permanent atrial fibrillation), HTN, Hypercholesterolemia, NIDDM, Valvular Disease, Psychiatric (Depression) and Other (Obstructive sleep apnea, gout, CKD 3B, chronic anemia)
Past Surgical History: Tonsilectomy
Social History
Tobacco: Non-Smoker
Alcohol: None
Drug: None
Personal: Single (Per records)
Living: With Family (Lives with daughter)
Family History
Family History: Reviewed & Not Pertinent
Allergies / Home Medications
Allergy/AdvReac Type Severity Reaction Status Date / Time
amlodipine Allergy constipatio Verified 12/25/22 12:25
n
�Medication �Instructions �Recorded �Confirmed �Type
allopurinol 100 mg tablet 100 mg PO DAILY 12/25/22 12/25/22 History
apixaban 5 mg tablet (Eliquis) 5 mg PO BID 12/25/22 12/25/22 History
chlorthalidone 25 mg tablet 25 mg PO DAILY 12/25/22 12/25/22 History
cholecalciferol (vitamin D3) 50 50 mcg PO DAILY 12/25/22 12/25/22 History
mcg (2,000 unit) capsule (Vitamin
D3)
cyanocobalamin (vitamin B-12) 1,000 mcg PO Q48H 12/25/22 12/25/22 History
1,000 mcg tablet (Vitamin B-12)
docusate sodium 100 mg capsule 100 mg PO DAILY 12/25/22 03/26/24 History
(Stool Softener)
dulaglutide 1.5 mg/0.5 mL 1.5 mg SC QWEEK 12/25/22 12/25/22 History
subcutaneous pen injector
(Trulicity)
insulin glargine 100 unit/mL (3 15 unit SC DAILY 12/25/22 12/25/22 History
mL) subcutaneous pen (Basaglar
KwikPen U-100 Insulin)
lisinopril 20 mg tablet 20 mg PO DAILY 12/25/22 03/26/24 History
metformin 500 mg tablet 500 mg PO BID 12/25/22 03/26/24 History
sennosides 8.6 mg tablet (Senokot) 8.6 mg PO DAILY 12/25/22 03/26/24 History
sertraline 50 mg tablet 50 mg PO QPM 12/25/22 03/26/24 History
simvastatin 10 mg tablet 10 mg PO DAILY 12/25/22 03/26/24 History
levothyroxine 25 mcg tablet 25 mcg PO DAILY 03/26/24 03/26/24 History
Review of Systems
-
All other systems: Negative unless noted
Physical Exam
Vital Signs
Temp Pulse Resp BP Pulse Ox
36.9 C 58 14 142/59 98
03/28/24 11:31 03/28/24 11:31 03/28/24 11:31 03/28/24 11:31 03/28/24 11:31
Lab Results
03/28/24 06:36
03/28/24 06:36
Physical Exam
General: Other (Mildly fatigued, some appearance of chronic illness)
HEENT: Normocephalic
Respiratory: Clear
Cardiac: Irregular Rhythm (Bradycardic), Murmur (Soft aortic stenosis and mitral regurgitation murmur, JVD okay, carotid bruits) and Carotid Pulses (Bilateral bruits)
GI: Soft and Non Distended
Musculoskeletal: No Edema
Skin: Warm and Dry
Neuro: AO x 3
Psych: Calm
Impression / Plan
-
Primary care: Dr. Fenton
Cardiology: Dr. Márquez
Impression:
Persistent/permanent atrial fibrillation with slow ventricular response
SIRS/possible pneumonia
CKD 3B
Iron deficiency anemia
Diabetes type 2
Hypothyroidism
Hyperlipidemia
Depression
Obstructive sleep apnea
Gout
Echo November 2023: Mild LVH, EF 55-60%, normal RV, MAC, mild mitral regurgitation, mild to moderate aortic stenosis, peak/mean gradient 24/11 mmHg, aortic valve area 1.3 cm 2, moderate TR, pulmonary artery pressure 36 mmHg
Plan:
From a cardiac standpoint she has a slow ventricular response to atrial fibrillation but at present there is no clear-cut indication for urgent pacemaker implantation at this time and there are no beta-blockers/calcium blockers etc. to withdraw.
Nothing is required from cardiac standpoint other than continued observation. Though at discharge we will arrange for a 2-week ambulatory monitor with follow-up to our office.
Treatment of fever/possible infectious issue per hospitalist and ID
Discussed with nursing, patient, patient's brother and daughter
Data Reviewed
-
EKG: Tracing Personally Visualized and interpreted (Atrial fibrillation with slow ventricular response, possible junctional escape, borderline low voltage)
Radiology: Image Personally Visualized and interpreted (Chest x-ray: Cardiomegaly, minimal blunting of relations liaison bilaterally, minimal basilar opacities)
CT Scan: Report Reviewed by me (No obvious abnormality of abdominal pelvic CT)
Medical Tests (Nuc Med, Echo etc): Image Personally Visualized and interpreted
Labs: Labs Reviewed by me (Hemoglobin 8.3, white count 7.0, BUN and creatinine 42 and 1.6, potassium 4)
Old Records: Reviewed
[2024-03-28 16:41] LABS: Glucose - Point of Care 216 mg/dl (70-99)
[2024-03-28] MEDS: TYLENOL 650 MG PO ×2 (16:45→21:03)
[2024-03-28] MEDS: NOVOLOG FLEXPEN-LOW RESISTANCE 2 UNITS SC (16:46)
[2024-03-28 21:14] LABS: Glucose - Point of Care 197 mg/dl (70-99)
[2024-03-29] VITALS (7 sets, daily range): BP systolic 124–163; BP diastolic 47–75; BMI 31.9
[2024-03-29] MEDS: TYLENOL 650 MG PO ×2 (04:24→17:23)
--- NOTE | 2024-03-29 04:45 | PTCARENOTE ---
Pt reports not feeling well, overall discomfort and nausea. Tylenol given. Order obtained for Compazine 10mg x1 and given to pt. Pt resting in bed, trying to sleep.
[2024-03-29] MEDS: COMPAZINE 10 MG IV (04:57)
[2024-03-29 07:26] LABS: Glucose - Point of Care 208 mg/dl (70-99)
[2024-03-29 07:43] LABS: Mean Corp Hgb Conc. 34.6 g/dL (33.0-37.0); Mean Corpuscular Volume 95.2 fL (81.0-99.0); Mean Platelet Volume 11.5 fL (7.4-10.4); Platelet Count 154 10^3/uL (130-400); Red Blood Cell Count 2.73 10^6/uL (4.20-5.40); Red Cell Dist. Width 13.3 % (11.5-14.5); White Blood Cell Count 14.4 10^3/uL (4.8-10.8)
[2024-03-29 08:11] LABS: Blood Urea Nitrogen 35 mg/dl (7-17); Carbon Dioxide 21 mmol/L (22-30); Chloride 106 mmol/L (98-107); Estimated Creatinine Clearance 35 ml/min; Glucose 186 mg/dl (70-99); Magnesium 1.7 mg/dl (1.6-2.3); Potassium 3.5 mmol/L (3.5-5.1); Sodium 138 mmol/L (135-145); eGFR 39.23
[2024-03-29] MEDS: MIRALAX 17 GRAMS PO ×2 (08:45→21:00)
[2024-03-29] MEDS: VIBRAMYCIN 100 MG PO ×2 (08:45→21:00)
[2024-03-29] MEDS: ELIQUIS 5 MG PO ×2 (08:45→21:00)
[2024-03-29] MEDS: SENOKOT-S 2 TABLET PO (08:45)
--- NOTE | 2024-03-29 08:56 | W.PN.CARDCBS ---
Today's Communication / Plan
-
No indications for permanent pacing and review of telemetry and continue treatments as you are
Impression / Plan
-
Primary care: Dr. Fenton
Cardiology: Dr. Márquez
Impression:
Persistent/permanent atrial fibrillation with slow ventricular response
SIRS/possible pneumonia
CKD 3B
Iron deficiency anemia
Diabetes type 2
Hypothyroidism
Hyperlipidemia
Depression
Obstructive sleep apnea
Gout
Echo November 2023: Mild LVH, EF 55-60%, normal RV, MAC, mild mitral regurgitation, mild to moderate aortic stenosis, peak/mean gradient 24/11 mmHg, aortic valve area 1.3 cm 2, moderate TR, pulmonary artery pressure 36 mmHg
Plan:
From a cardiac standpoint she has a slow ventricular response to atrial fibrillation but at present there is no clear-cut indication for urgent pacemaker implantation at this time and there are no beta-blockers/calcium blockers etc. to withdraw.
She is asymptomatic and her heart rates overnight on telemetry were in the 50s to 60s. She has no pauses greater than 3 seconds.
Nothing is required from cardiac standpoint other than continued observation. Though at discharge we will arrange for a 2-week ambulatory monitor with follow-up to our office.
Treatment of fever/possible infectious issue per hospitalist and ID
Discussed with nursing, patient, patient's brother and daughter
Progress Note - Custodial Services Manager
Subjective
Date of Service: March 29, 2024
Total Time Spent with Patient (in minutes): Asymptomatic in atrial fibrillation
Objective
Labs:
03/29/24 06:49
03/29/24 06:49
Labs
Hgb 9.0 g/dL (12.0-16.0) L 03/29/24 06:49
Hct 26.0 % (37.0-47.0) L 03/29/24 06:49
Plt Count 154 10^3/uL (130-400) 03/29/24 06:49
Sodium 138 mmol/L (135-145) 03/29/24 06:49
Potassium 3.5 mmol/L (3.5-5.1) 03/29/24 06:49
BUN 35 mg/dl (7-17) H 03/29/24 06:49
Creatinine 1.4 mg/dL (0.6-1.0) H 03/29/24 06:49
Glucose 186 mg/dl (70-99) H 03/29/24 06:49
Vital Signs and I&O:
Vital Signs
Temp Pulse Resp BP Pulse Ox
98.6 F 61 17 130/58 97
03/29/24 07:45 03/29/24 07:45 03/29/24 07:45 03/29/24 07:45 03/29/24 07:45
Vital Signs
Temp Pulse Resp BP Pulse Ox
98.6 F 61 17 130/58 97
03/29/24 07:45 03/29/24 07:45 03/29/24 07:45 03/29/24 07:45 03/29/24 07:45
Intake & Output
03/27/24 03/28/24 03/29/24 03/30/24
06:59 06:59 06:59 06:59
Intake Total 0 / 0 2400 / 2400 240 / 240
Balance 0 / 0 2400 / 2400 240 / 240
Physical Exam
Physical Exam
Physical Exam
General: no apparent distress, not acutely ill
Neck: supple. no meningeal signs. normal psoterior pharynx
Heart: s1/s2 regular rate and rhythm, no murmur. equal radial pulses.
Lungs: no acute respiratory distress. clear bilaterally
Abdomen: normal bowel sounds. not tender. no CVAT
Neuro: alert and oriented. no focal neurological deficits
Skin: no rash
Psychiatric: well kept. interactive and cooperative
Extremities: no edema. no calf tenderness. negative homans. good distal pulses
[2024-03-29] MEDS: NOVOLOG FLEXPEN-LOW RESISTANCE 2 UNITS SC ×2 (09:00→17:11)
--- NOTE | 2024-03-29 10:18 | W.PN.HOSP.TC ---
Addendum entered and electronically signed by Sandi Crum MD 03/29/24 10:37:
Addendum
# Hypomagnesemia, will replete
# Creatinine came back 1.4 today
# Metabolic acidosis, will do low-dose sodium bicarb orally
d/w daughter
End
Original Note:
Today's Communication/Plan
-
.
Assessment / Plan
Assessment / Plan
Physical Exam
General: No acute distress
HEENT: Normocephalic, Atraumatic, EOMI, MMM
Respiratory: Clear to Auscultation bilaterally
Cardiac: Normal S1/S2, Regular Rate and Rhythm
GI: Soft, Nontender, Nondistended, Normal Bowel Sounds
Extremities: No Clubbing, Cyanosis, or Edema
Neuro: Nonfocal/Grossly Intact
Psych: Calm, Cooperative
Derm: No Visible lesions
HPI: 74-year-old female with diabetes mellitus, atrial fibrillation on Eliquis, CKD, who had recent workup for fatigue. She was found to have iron deficient anemia. On March 25, she had her first IV iron infusion. Afterward she developed nausea and
GI upset. Later she developed fever. She came to the hospital. Her white count was 11.2. Temperature max was 102. Urine analysis negative. Procalcitonin 0.46. CAT scan of the abdomen and pelvis unremarkable. Chest x-ray showed mild patchy
left basilar airspace opacities. Of note the CAT scan of the abdomen pelvis showed lung bases are clear of an acute process. There was moderate stool in the colon. no cough or shortness of breath. No diarrhea. She had 2 bowel movements
yesterday and the abdominal discomfort resolved. No ill contacts. She is originally from [facility] and has not gone back for a long time. No urinary symptoms.
# Nausea over night, no abd pain
Nausea resolved with medicine, could be from oral ABx
# Fever over night
Afebrile this morning
c/w empiric ABx
No hypoxia
Repeat blood culture 03/29 , other specimens are No growth so far
Appreciate ID help
#Chronic normocytic anemia
B12/folic acid normal
Hemoglobin 9.0
Denied any black or bloody stools, has not had a bowel movement since admission
Follow-up with GI in the office for outpatient colonoscopy that is scheduled for April
Sees Dr Potts - Heme onco
Appreciate hematology input, secondary to chronic kidney disease, iron deficiency, history of B12 deficiency
#Permanent atrial fibrillation with slow ventricular response
Continue Eliquis
patient sees Dr. Pearson
No indication for pacemaker. Asymptomatic.
Appreciate GI help
#Constipation
Started laxatives
#Stage IIIb chronic kidney disease
Creatinine 1.6 today, about her baseline of 1.5
Type 2 diabetes
AM BS 208
Continue diabetic diet, sliding scale insulin
Restart Lantus
#Hypothyroidism
Continue Synthroid
DVT prophylaxis�Eliquis
Full code
Updated family at bedside 03/28
Total time spent to see the patient on the floor, examine the patient, review data and lab results, discuss treatment plan with patient, family, nursing staff around 59 minutes.
Anticipated Discharge: 24 - 48 hours
Subjective/Interval History
-
Date of Service: March 29, 2024
She had nausea and fever over night
Objective Data
-
Labs:
Laboratory Results
03/29/24
06:49
WBC 14.4 H
Hgb 9.0 L
Hct 26.0 L
Plt Count 154
Sodium 138
Potassium 3.5
Chloride 106
Carbon Dioxide 21 L
BUN 35 H
Creatinine 1.4 H
Glucose 186 H
Calcium 9.0
Vital Signs:
Vital Signs
Temp Pulse Resp BP Pulse Ox
98.6 F 61 17 130/58 97
03/29/24 07:45 03/29/24 07:45 03/29/24 07:45 03/29/24 07:45 03/29/24 07:45
I&O
03/28/24 03/29/24 03/30/24
06:59 06:59 06:59
Intake Total 2400 / 2400 240 / 240
Balance 2400 / 2400 240 / 240
[2024-03-29 11:20] LABS: Glucose - Point of Care 258 mg/dl (70-99)
[2024-03-29] MEDS: MAGNESIUM SULFATE 100 IV (12:41)
[2024-03-29] MEDS: LANTUS 0.149999999999999994 UNITS SC (12:41)
[2024-03-29] MEDS: ROCEPHIN 1000 MG IV (12:42)
[2024-03-29] MEDS: STERILE WATER FOR INJECTION 10 ML IV (12:42)
[2024-03-29] MEDS: COMPAZINE 5 MG IV ×2 (12:43→17:12)
[2024-03-29] MEDS: NOVOLOG FLEXPEN-LOW RESISTANCE 3 UNITS SC (12:44)
--- NOTE | 2024-03-29 13:49 | W.PN.ID1 ---
Date of Service
Date of Service: March 29, 2024
Today's Communication
Resume ceftriaxone.
Bcx's x 2.
Assessment / Plan
# Recurrence of fever with leukocytosis
- Unclear source.
Bcx neg. UA neg. CT a/p: unremarkable
- Low suspicion for CAP
CXR with mild left base opacity- suspect atelectasis
In addition, CT a/p showed lung bases clear of acute process
Elevated procalcitonin can be false positive from renal impairment.
- Repeat blood cx's.
- Resume ceftriaxone.
- Continue doxycyline for now.
# Anemia
- several month h/o progressive weakness
- s/p first IV iron infusion 03/25, then developed fever, nausea/V same day
- EGD/colonoscopy scheduled for 04/27
# Hx +PPD
- hx of BCG vaccine in [facility]
-Check QTgold plus
-Will offer LTBI tx at some point
#Additional Past Medical History:
Diabetes mellitus
Atrial fibrillation on Eliquis
Hypertension
Iron deficient anemia
hypothyroidism
CKD
anxiety/depression
Chief Complaint
-: Fever
Subjective / Review of Systems
Had recurrence of fever last evening. + chills.
+ nausea. No abd pain. No diarrhea. On bowel regimen for constipation
No cough/SOB. No urinary symptoms.
No VALENTIN/sinus congestion.
No tooth pain.
+ mild right sore throat after drinking cold water this morning.
Vital Signs / Physical Exam
Vital Signs
Vital Signs
Temp Pulse Resp BP Pulse Ox
98.8 F 59 17 134/58 95
03/29/24 11:11 03/29/24 11:11 03/29/24 11:11 03/29/24 11:11 03/29/24 11:11
Selected Entries
03/28/24
15:24 03/28/24
23:23 03/29/24
03:22
Temp 100.4 F H 100.8 F H 100.7 F H
Physical Exam
Constitutional: No Acute Distress and Comfortable
Head: Other (no frontal or maxillary sinus tenderness)
Eyes: No Conjunctival Hemorrhage and Sclera Anicteric
Oropharyngeal: Benign
Cardiovascular: Regular Rate and S1/S2
Pulmonary: Clear and Non Labored; Negative Wheezes, Rales, Rhonchi or Coarse
Gastrointestinal: Soft, Non Tender, Non Distended and Normal Bowel Sounds
Genito-Urinary: Negative CVA Tenderness
Extremities: Negative Edema
Neurological: AO x 3; Negative Meningeal Signs
Objective Data
Lab Data
Lab Results
03/29/24 06:49
03/29/24 06:49
Estimated Creat Clear 35 ml/min 03/29/24 06:49
Lactic Acid Cancelled 03/27/24 16:01
Total Bilirubin Cancelled 03/27/24 08:44
AST Cancelled 03/27/24 08:44
ALT Cancelled 03/27/24 08:44
Alkaline Phosphatase Cancelled 03/27/24 08:44
Most recent labs reviewed.
Micro Results:
03/29/24 10:38 Blood Culture - Pending
Blood/Venous
03/29/24 09:53 Blood Culture - Pending
Blood/Venous
03/27/24 01:58 Blood Culture - Preliminary
Blood/Venous No Growth in 48 hours- Final report to follow
03/26/24 21:15 Blood Culture - Preliminary
Blood/Venous No Growth in 48 hours- Final report to follow
03/26/24 23:15 Legionella Urinary Antigen - Final
Urine Negative for Legionella pneumophila Serogroup 1 antigen.
A negative result does not rule out the possiblity of
Legionella infection due to other serogroups or species of
Legionella. Clinical correlation is recommended.
Streptococcus pneumoniae Antigen (M - Final
Negative for Streptococcus pneumoniae antigen.
A negative result does not exclude infection with
Streptococcus pneumoniae. Clinical correlation is
recommended.
03/26/24 21:15 Influenza Types A & B (MICHAEL) - Final
Nasal Swab Negative for Influenza A & B, NAAT
Negative results must be combined with clinical observations
and patient history.
Nucleic Acid Amplification test (NAAT)performed on the
[employer] platform.
03/27/24 CT a/p w IV: No significant acute abnormality identified in the abdomen or pelvis, as described above. Mild to moderate diffuse colonic stool burden may reflect constipation.
03/27/24 CXR: Mild left basilar atelectasis and/or pneumonia.
[2024-03-29 16:21] LABS: Glucose - Point of Care 239 mg/dl (70-99)
[2024-03-29] MEDS: SODIUM BICARBONATE 650 MG PO ×2 (17:11→21:08)
--- NOTE | 2024-03-29 17:35 | PTCARENOTE ---
Patient temp 102.1. Patient c/o weakness and nausea. Tylenol given and scheduled compazine.
--- NOTE | 2024-03-29 18:56 | PTCARENOTE ---
Patient for an Quantiferon TB gold lab test, Per Dr Chaney, patient does not have to be in an isolation room.
[2024-03-29 21:21] LABS: Glucose - Point of Care 218 mg/dl (70-99)
[2024-03-30 03:14] VITALS: BP 145/61
[2024-03-30 06:00] VITALS: BMI 30.9
[2024-03-30 07:00] VITALS: BP 126/84
[2024-03-30 07:40] LABS: Hemoglobin 8.5 g/dL (12.0-16.0); Mean Corp Hgb Conc. 35.4 g/dL (33.0-37.0); Mean Corpuscular Hgb 32.8 pg (27.0-31.0); Mean Corpuscular Volume 92.7 fL (81.0-99.0); Platelet Count 173 10^3/uL (130-400); Red Blood Cell Count 2.59 10^6/uL (4.20-5.40); Red Cell Dist. Width 13.5 % (11.5-14.5); White Blood Cell Count 12.5 10^3/uL (4.8-10.8)
[2024-03-30 07:50] LABS: Glucose - Point of Care 187 mg/dl (70-99)
[2024-03-30] MEDS: ELIQUIS 5 MG PO (08:07)
[2024-03-30] MEDS: VIBRAMYCIN 100 MG PO (08:07)
[2024-03-30] MEDS: SODIUM BICARBONATE 650 MG PO (08:07)
[2024-03-30] MEDS: COMPAZINE 5 MG IV (08:07)
[2024-03-30] MEDS: MIRALAX 17 GRAMS PO (08:08)
[2024-03-30] MEDS: NOVOLOG FLEXPEN-LOW RESISTANCE 1 UNITS SC (08:09)
--- NOTE | 2024-03-30 08:51 | W.PN.HOSP.TC ---
Addendum entered and electronically signed by Sandi Crum MD 03/30/24 14:40:
Addendum
I received a call from ID doctor about patient's desire to go home. She was evaluated by oncology and ID doctors today. She is feeling better. She has been afebrile for 24 hours. Patient and her family wanted to go home and they were eager to
be discharged. Patient remained hemodynamically stable. Discharge instructions were given to the patient and she will follow-up with her oncology and primary care doctor in the office. Discharge plan was discussed with ID doctor.
Patient was also advised to follow-up with nephrology for underlying chronic kidney disease.
Total discharge time spent to see the patient, examine the patient on the floor, review data and lab results, discuss discharge plan with patient, family, ID Dr. Nursing staff around 75 minutes
Original Note:
Today's Communication/Plan
-
Negative rectal exam for occult blood
restart Lantus
f/w ID and hematology recommendations.
Assessment / Plan
Assessment / Plan
Physical Exam
General: No acute distress
HEENT: Normocephalic, Atraumatic, EOMI, MMM
Respiratory: Clear to Auscultation bilaterally
Cardiac: Normal S1/S2, Regular Rate and Rhythm
GI: Soft, Nontender, Nondistended, Normal Bowel Sounds
Extremities: No Clubbing, Cyanosis, or Edema
Neuro: Nonfocal/Grossly Intact
Psych: Calm, Cooperative
Derm: No Visible lesions
HPI: 74-year-old female with diabetes mellitus, atrial fibrillation on Eliquis, CKD, who had recent workup for fatigue. She was found to have iron deficient anemia. On March 25, she had her first IV iron infusion. Afterward she developed nausea and
GI upset. Later she developed fever. She came to the hospital. Her white count was 11.2. Temperature max was 102. Urine analysis negative. Procalcitonin 0.46. CAT scan of the abdomen and pelvis unremarkable. Chest x-ray showed mild patchy
left basilar airspace opacities. Of note the CAT scan of the abdomen pelvis showed lung bases are clear of an acute process. There was moderate stool in the colon. no cough or shortness of breath. No diarrhea. She had 2 bowel movements
yesterday and the abdominal discomfort resolved. No ill contacts. She is originally from [facility] and has not gone back for a long time. No urinary symptoms.
# Nausea over night, no abd pain
Nausea resolved with medicine. Tolerating diet now. No abdominal pain
# Fevers. Unknown source , possible non-infectious origin.
c/w empiric ABx
No hypoxia. No cough. No sinus pain. No skin rash.
Repeat blood culture 03/29 , other specimens are No growth so far. Urine was not c/w UTI on admission. CT of Abdomen and pelvis no acute findings. hepatomegaly. LFT normal on admission.
Appreciate ID help
#Chronic normocytic anemia with UZMA with anemia of chronic disease.
B12/folic acid normal
Hemoglobin 8.5
Denied any black or bloody stools, has not had a bowel movement since admission. rectal exam negative occult blood.
Follow-up with GI in the office for outpatient colonoscopy that is scheduled for April
Sees Dr Potts - Heme onco
Appreciate hematology input, secondary to chronic kidney disease, iron deficiency, history of B12 deficiency
#Permanent atrial fibrillation with slow ventricular response
Continue Eliquis
patient sees Dr. Pearson
No indication for pacemaker. Asymptomatic.
Appreciate GI help
#Constipation
Started laxatives
#Stage IIIb chronic kidney disease
Creatinine 1.6 today, about her baseline of 1.5
Type 2 diabetes
AM BS 187
Continue diabetic diet, sliding scale insulin
Restart Lantus
#Hypothyroidism
Continue Synthroid
DVT prophylaxis�Eliquis
Full code
Updated family at bedside 03/28
Total time spent to see the patient on the floor, examine the patient, review data and lab results, discuss treatment plan with patient, family, nursing staff around 59 minutes.
Anticipated Discharge: > 48 hours
Subjective/Interval History
-
Date of Service: March 30, 2024
Objective Data
-
Labs:
Laboratory Results
03/30/24
07:27
WBC 12.5 H
Hgb 8.5 L
Hct 24.0 L
Plt Count 173
Sodium Pending
Potassium Pending
Chloride Pending
Carbon Dioxide Pending
BUN Pending
Creatinine Pending
Glucose Pending
Calcium Pending
Vital Signs:
Vital Signs
Temp Pulse Resp BP Pulse Ox
99.8 F 65 14 126/84 93
03/30/24 07:00 03/30/24 07:00 03/30/24 07:00 03/30/24 07:00 03/30/24 07:00
I&O
03/29/24 03/30/24 03/31/24
06:59 06:59 06:59
Intake Total 240 / 240 300 / 300
Balance 240 / 240 300 / 300
[2024-03-30 08:53] LABS: Blood Urea Nitrogen 29 mg/dl (7-17); Carbon Dioxide 21 mmol/L (22-30); Estimated Creatinine Clearance 35 ml/min; Glucose 161 mg/dl (70-99); Iron 42 ug/dl (37-170); eGFR 39.23
[2024-03-30 09:03] LABS: Calcium 9.2 mg/dl (8.4-10.2); Chloride 105 mmol/L (98-107); Magnesium 1.8 mg/dl (1.6-2.3); Potassium 3.5 mmol/L (3.5-5.1); Sodium 137 mmol/L (135-145)
[2024-03-30 11:00] VITALS: BP 147/69
[2024-03-30 11:36] LABS: Glucose - Point of Care 231 mg/dl (70-99)
[2024-03-30] MEDS: NOVOLOG FLEXPEN-LOW RESISTANCE SC (12:08)
--- NOTE | 2024-03-30 12:17 | W.PN.ONC ---
Today's Communication / Plan
-
Antibiotics were restarted, and she seemingly is remaining afebrile. I told the family that a reaction from the Injectafer was quite unlikely, with her fever lasting over several days. However, I cannot exclude this with 100% certainty. No clear
evidence of infection, chest x-ray showing probable atelectasis. Lung bases were clear on admission CT. Family requested repeat iron studies, having received 1 dose of Injectafer her iron studies, which were previously normal, should be very good,
although the serum iron may drop in the face of infection and fevers.
Impression
Impression
fever
pneumonia
abdominal discomfort
anemia - multifactorial - CKD/ iron deficiency
h/o B12 deficiency
Plan
Plan
1. Fever - possible pneumonia on CXR
-CT w/o signfiicant abnormalities
-CXR w/ pneumonia
-cultures pending
-antibiotics as per primary service/ ID
1. Anemia - CKD/ iron def/ h/o B12 deficiency
-hemoglobin stable
-check B12/ folic acid levels
-has established care w/ GI - w/ colonoscopy apparently scheduled for April - could consider GI consultation as inpt w/ abdominal discomfort/ anemia - iron deficiency
-no further IV iron in setting of possible infection
-continue to follow CBC
will continue to follow with you
Subjective/Objective
Subjective/Objective
She feels about the same, somewhat weak, appetite is so-so. No fever in the past 24 hours. Physical exam is unchanged.
Vital Signs:
Vital Signs
Temp Pulse Resp BP Pulse Ox
98.6 F 58 14 147/69 93
03/30/24 11:00 03/30/24 11:00 03/30/24 11:00 03/30/24 11:00 03/30/24 11:00
Lab Results:
Laboratory Data
WBC 12.5 10^3/uL (4.8-10.8) H 03/30/24 07:27
Hgb 8.5 g/dL (12.0-16.0) L 03/30/24 07:27
Plt Count 173 10^3/uL (130-400) 03/30/24 07:27
eGFR 39.23 03/30/24 07:27
Orders
Orders
Orders From Last 24 Hours
03/30/24 11:44
Ferritin Routine
[place]/Lambda FLC Quant [S] Routine
LDH Routine
TIBC [Total Iron Binding] Routine
--- NOTE | 2024-03-30 12:18 | W.PN.ID1 ---
Date of Service
Date of Service: March 30, 2024
Today's Communication
See below.
Assessment / Plan
# Recurrence of fever with leukocytosis
- Unclear source.
Bcx neg. UA neg. CT a/p: unremarkable
- Low suspicion for CAP
CXR with mild left base opacity- suspect atelectasis
In addition, CT a/p showed lung bases clear of acute process
Elevated procalcitonin can be false positive from renal impairment.
- Repeat blood cx's negative.
- If afebrile x 24 hours, OK to dc home, transition ceftriaxone/doxy to Augmentin 500mg po bid x 4 more days.
- Resume ceftriaxone.
- Continue doxycyline for now.
# Anemia
- several month h/o progressive weakness
- s/p first IV iron infusion 03/25, then developed fever, nausea/V same day
- EGD/colonoscopy scheduled for 04/27
# Hx +PPD
- hx of BCG vaccine in [facility]
-QTgold pending for LTBI eval.
#Additional Past Medical History:
Diabetes mellitus
Atrial fibrillation on Eliquis
Hypertension
Iron deficient anemia
hypothyroidism
CKD
anxiety/depression
Chief Complaint
-: Fever
Subjective / Review of Systems
Last fever yesterday afternoon. Had bodyache at time of fever.
No fever overnight. Daughter and want to take her home.
Pt wants to go home. Has mild scratchy throat. No sinus congestion.
Stool is loose to soft.
Vital Signs / Physical Exam
Vital Signs
Vital Signs
Temp Pulse Resp BP Pulse Ox
98.6 F 58 14 147/69 93
03/30/24 11:00 03/30/24 11:00 03/30/24 11:00 03/30/24 11:00 03/30/24 11:00
Physical Exam
Constitutional: No Acute Distress and Comfortable
Eyes: Sclera Anicteric
Oropharyngeal: Benign
Pulmonary: Clear
Gastrointestinal: Non Tender, Non Distended and Normal Bowel Sounds
Genito-Urinary: Negative CVA Tenderness
Extremities: Negative Edema
Neurological: AO x 3
Objective Data
Lab Data
Lab Results
03/30/24 07:27
03/30/24 07:27
Estimated Creat Clear 35 ml/min 03/30/24 07:27
Lactic Acid Cancelled 03/27/24 16:01
Total Bilirubin Cancelled 03/27/24 08:44
AST Cancelled 03/27/24 08:44
ALT Cancelled 03/27/24 08:44
Alkaline Phosphatase Cancelled 03/27/24 08:44
Most recent labs reviewed.
Micro Results:
03/29/24 10:38 Blood Culture - Preliminary
Blood/Venous No Growth in 24 hours- Final report to follow
03/29/24 09:53 Blood Culture - Preliminary
Blood/Venous No Growth in 24 hours- Final report to follow
03/27/24 01:58 Blood Culture - Preliminary
Blood/Venous No Growth in 72 hours- Final report to follow
03/26/24 21:15 Blood Culture - Preliminary
Blood/Venous No Growth in 72 hours- Final report to follow
03/26/24 23:15 Legionella Urinary Antigen - Final
Urine Negative for Legionella pneumophila Serogroup 1 antigen.
A negative result does not rule out the possiblity of
Legionella infection due to other serogroups or species of
Legionella. Clinical correlation is recommended.
Streptococcus pneumoniae Antigen (M - Final
Negative for Streptococcus pneumoniae antigen.
A negative result does not exclude infection with
Streptococcus pneumoniae. Clinical correlation is
recommended.
03/26/24 21:15 Influenza Types A & B (MICHAEL) - Final
Nasal Swab Negative for Influenza A & B, NAAT
Negative results must be combined with clinical observations
and patient history.
Nucleic Acid Amplification test (NAAT)performed on the
[employer] platform.
03/27/24 CT a/p w IV: No significant acute abnormality identified in the abdomen or pelvis, as described above. Mild to moderate diffuse colonic stool burden may reflect constipation.
03/27/24 CXR: Mild left basilar atelectasis and/or pneumonia.
Care Review
Plan reviewed with: Physician (Dr. Crum)
[2024-03-30 12:36] LABS: Total Iron Binding Capacity 210 ug/dl (265-497)
[2024-03-30 12:47] LABS: LDH 185 U/L (120-246)
[2024-03-30] MEDS: COMPAZINE IV ×2 (12:47→13:27)
[2024-03-30] MEDS: ROCEPHIN 1000 MG IV (12:48)
[2024-03-30] MEDS: NOVOLOG FLEXPEN-MODERATE RESISTANCE 3 UNITS SC (12:48)
[2024-03-30] MEDS: STERILE WATER FOR INJECTION 10 ML IV (12:48)
--- NOTE | 2024-03-30 13:29 | W.DCSUMMARY ---
Discharge Summary
Discharge Data
Date of Admission: 03/27/24
Date of Discharge: 03/30/24
-
Pending Results: No
Hospital Course
74 years old female presented with nausea and abdominal discomfort. She was found to have mild leukocytosis. Patient received intravenous iron the day before coming to the hospital for treatment of anemia by her oncologist . Patient was
admitted to the hospital. She did not have respiratory symptoms. Scan of the abdomen and pelvis was unremarkable for acute findings. She was started on empiric antibiotics and was evaluated by infectious diseases outside solar sales consultant. The initial
assumption was possible reaction to intravenous iron but later she developed fever. Urinalysis was negative. Procalcitonin was mildly elevated at 0.46. Blood culture was drawn. Chest radiography showed mild patchy left basilar airspace
opacities. Scan of the abdomen and pelvis showed clear lung bases with no acute process. She had moderate stool in the colon and was given laxative treatment with good bowel function. No history of sick contact. Patient had history of chronic
kidney disease and diabetes. Patient was evaluated by hematology/oncology doctor. Patient was diagnosed with anemia of chronic disease. She had history of vitamin B12 deficiency but current level was normal with normal folic acid. Rectal
examination did not come positive for occult blood. Patient was scheduled to have an outpatient colonoscopy in April. Blood culture remained clear. Patient had recurrent fever in the hospital. COVID test was negative. Infectious disease doctor
followed the patient. Patient was kept on antibiotics. Patient remained fever free for 24 hours before discharge. ID doctor recommended to finish course of oral Augmentin and doxycycline. Patient was found to have chronic kidney disease stage
IIIb. She had mild metabolic acidosis. Metformin was stopped and patient was advised to follow-up with primary care doctor for further management of hyperglycemia/diabetes. She was also advised to follow-up with piano mechanic apprentice in the outpatient
setting and she was given contact information for the local group. Patient tolerated diet well. She did not have recurrent nausea. Hemoglobin was stable between 8-9, normal lactate dehydrogenase. Iron level was normal. Patient remained
hemodynamically stable and was discharged in a stable condition.
Discharge Plan
-
Patient Disposition: Home with Home Care
Discharge Diagnosis/Procedures: History of fever with leukocytosis
Anemia of chronic disease
You were seen by hematology and infectious diseases doctors. You are discharged on 2 antibiotics, Augmentin and doxycycline. Potential side effects of antibiotics include gastrointestinal problems. Potential side effects doxycycline includes
photosensitivity.
We stopped metformin because of underlying kidney disease. You have CKD stage IIIb. We recommend to discuss with your primary care doctor for further management/nephrology follow-up.
Your hemoglobin on discharge was 8.5, creatinine was 1.4 with GFR at 35.
Diet: As tolerated
Referrals:
Regina Rae MD [Family Provider] - in one to two weeks
Dannie Garcia DO [Active] - (call to make an appointment )
Tianna Potts DO [Active] - in one to two weeks
Prescriptions:
New
doxycycline hyclate 100 mg Capsule
100 mg PO Q12 Qty: 8 0RF
amoxicillin-pot clavulanate [Augmentin] 500-125 mg tablet
1 tab PO BID Qty: 8 0RF
Continued
sennosides [Senokot] 8.6 mg Tablet
8.6 mg PO DAILY
lisinopril 20 mg Tablet
20 mg PO DAILY
simvastatin 10 mg Tablet
10 mg PO DAILY
cyanocobalamin (vitamin B-12) [Vitamin B-12] 1,000 mcg Tablet
1,000 mcg PO Q48H
chlorthalidone 25 mg Tablet
25 mg PO DAILY
allopurinol 100 mg Tablet
100 mg PO DAILY
docusate sodium [Stool Softener] 100 mg Capsule
100 mg PO DAILY
sertraline 50 mg Tablet
50 mg PO QPM
insulin glargine [Basaglar KwikPen U-100 Insulin] 100 unit/mL (3 mL) Insulin Pen
15 unit SC DAILY
cholecalciferol (vitamin D3) [Vitamin D3] 50 mcg (2,000 unit) Capsule
50 mcg PO DAILY
Eliquis 5 mg Tablet
5 mg PO BID
Trulicity 1.5 mg/0.5 mL Pen Injector
1.5 mg SC QWEEK
levothyroxine 25 mcg Tablet
25 mcg PO DAILY
Discontinued
metformin 500 mg Tablet
500 mg PO BID
Discharge Orders:
Discharge Patient (As Directed); Ordered 03/30/24
Ordered By: Sandi Crum
Discharge Date and Time
Print Language: ARMENIAN
--- NOTE | 2024-03-30 14:19 | CM ---
Patient seen bedside.
Patient for d/c home today.
Daughter denies need for services.
IMM completed.
Plan: home no needs.
daughter and spouse will transport.
--- NOTE | 2024-03-30 14:26 | PN.CDI ---
Addendum entered and electronically signed by Sandi Crum MD 03/30/24 14:41:
Patient met criteria of SIRS , with lack of infectious source.
Original Note:
CDI
- -
CDI:
Physician Documentation Request
Admit Date: 03/27/24 03:30
Dear Doctor Skyla,
Please review the following and provide your response in the progress notes.
Clinical Indicators:
- per H&P 'Associated with mild leucocytosis, SIRS picture'
- 03/30 PN 'Fevers. Unknown source , possible non-infectious origin'
- 03/30 Oncology 'Fever - possible pneumonia on CXR'
- 03/30 ID 'Recurrence of fever with leukocytosis...Low suspicion for CAP'
- 03/29 WBC 14.4, T max 101.0
- IV abx Azithromycin, Doxycycline, Vancomycin, Zosyn
- 6L IVF given
Please clarify which most accurately describes the patient:
Sepsis
Systemic manifestations of infection, with 2 or more SIRS criteria which include:
Fever > 100.4 degrees F or hypothermia < 96.8 degrees F
Leukocytosis - WBC > 12,000 or leukopenia, WBC < 4,000 or > 10% bands
Tachycardia - > 90 beats per minute
Tachypnea - RR > 20 breaths per minute or PaCO2 < 32 mmHg
Source: Merck Manual 2013
Indicate the known or suspected organism
Indicate the known or suspected underlying infection, such as UTI, pneumonia or cellulitis
Indicate if a suspected bacterial infection of unknown source
Indicate if associated with an implanted device such as a F/C, PICC line, orthopedic hardware etc.
Indicate if there is associated organ dysfunction, such as renal or respiratory failure
SIRS due to a non-infectious source
Indicate the known or suspected etiology
Indicate if there is associated organ dysfunction, such as renal or respiratory failure
Other
Use of terms such as suspected, likely, concern for, or probable (associated with a specific diagnosis that is being evaluated, monitored, or treated as if it exists) are acceptable and can be coded in the inpatient setting, when documented at the
time of discharge.
Thank you,
Trang Aguillon RN
CDI Specialist
Please use your independent medical judgment in providing your response.
[2024-03-30 15:00] VITALS: BP 150/56
--- NOTE | 2024-03-30 16:02 | W.PN.CARDCBS ---
Today's Communication / Plan
-
No further bradycardia
Stable cardiology status
Sign off
Impression / Plan
-
Primary care: Dr. Fenton
Cardiology: Dr. Márquez
Impression:
Persistent/permanent atrial fibrillation with slow ventricular response
SIRS/possible pneumonia
CKD 3B
Iron deficiency anemia
Diabetes type 2
Hypothyroidism
Hyperlipidemia
Depression
Obstructive sleep apnea
Gout
Echo November 2023: Mild LVH, EF 55-60%, normal RV, MAC, mild mitral regurgitation, mild to moderate aortic stenosis, peak/mean gradient 24/11 mmHg, aortic valve area 1.3 cm 2, moderate TR, pulmonary artery pressure 36 mmHg
Plan:
Bradycardia has resolved
treatment of fever/possible infectious issue per hospitalist and ID
Discussed with family at bedside
Progress Note - [employer]
Subjective
Date of Service: March 30, 2024
No complaints.
Objective
Labs:
03/30/24 07:27
03/30/24 07:27
Labs
Hgb 8.5 g/dL (12.0-16.0) L 03/30/24 07:27
Hct 24.0 % (37.0-47.0) L 03/30/24 07:27
Plt Count 173 10^3/uL (130-400) 03/30/24 07:27
Sodium 137 mmol/L (135-145) 03/30/24 07:27
Potassium 3.5 mmol/L (3.5-5.1) 03/30/24 07:27
BUN 29 mg/dl (7-17) H 03/30/24 07:27
Creatinine 1.4 mg/dL (0.6-1.0) H 03/30/24 07:27
Glucose 161 mg/dl (70-99) H 03/30/24 07:27
Vital Signs and I&O:
Vital Signs
Temp Pulse Resp BP Pulse Ox
98.2 F 70 16 150/56 94
03/30/24 15:00 03/30/24 15:00 03/30/24 15:00 03/30/24 15:00 03/30/24 15:00
Vital Signs
Temp Pulse Resp BP Pulse Ox
98.2 F 70 16 150/56 94
03/30/24 15:00 03/30/24 15:00 03/30/24 15:00 03/30/24 15:00 03/30/24 15:00
Intake & Output
03/28/24 03/29/24 03/30/24 03/31/24
06:59 06:59 06:59 06:59
Intake Total 2400 / 2400 240 / 240 300 / 300
Balance 2400 / 2400 240 / 240 300 / 300
Physical Exam
Physical Exam
General: Well developed, well nourished in NAD.
Neck: Supple, no JVD, HJR, carotids +2 B/L, no bruits bilaterally.
Heart: Non displaced PMI, RRR, no murmurs, No S3, S4, no rubs.
Lungs: Scattered rhonchi
Extremities: No clubbing, cyanosis or edema bilaterally.
Neuro: Grossly nonfocal, awake, alert and oriented x3.
[2024-03-31 10:58] LABS: Free Kappa Light Chains,Quant 81.05 mg/L (3.30-19.40); Free Lambda Light Chains,Quant 26.66 mg/L (5.71-26.30); Kappa/Lambda Fr Light Ratio 3.04 (0.26-1.65)
[2024-04-02 02:33] LABS: Quantiferon Mitogen minus NIL 0.41 IU/mL; Quantiferon NIL 0.01 IU/mL; Quantiferon Plus TB1 minus NIL -0.01 IU/mL (<=0.34); Quantiferon TB Gold Plus Indeterminate (Negative)
== END 2024-03-30 15:58 | disposition home or self-care (01) | DRG 864 ==
LOC: 4 WEST ACU 03:30
PROVIDERS: Family Medicine; Internal Medicine Hematology & Oncology; ADMITTING PHYSICIAN Internal Medicine; ATTENDING PHYSICIAN Internal Medicine; CONSULT PHYSICIAN Internal Medicine Cardiovascular Disease; CONSULT PHYSICIAN Internal Medicine Hematology & Oncology; CONSULT PHYSICIAN Internal Medicine Infectious Disease; EMERGENCY PHYSICIAN Emergency Medicine; FAMILY PHYSICIAN Emergency Medicine
DX: R50.9 Fever, unspecified (principal); E87.20 Acidosis, unspecified; J98.11 Atelectasis; R65.10 Systemic inflammatory response syndrome (SIRS) of non-infectious origin without acute organ dysfunction; I48.21 Permanent atrial fibrillation; N17.9 Acute kidney failure, unspecified; I12.9 Hypertensive chronic kidney disease with stage 1 through stage 4 chronic kidney disease, or unspecified chronic kidney disease; N18.32 Chronic kidney disease, stage 3b; E11.22 Type 2 diabetes mellitus with diabetic chronic kidney disease; E78.00 Pure hypercholesterolemia, unspecified; E03.9 Hypothyroidism, unspecified; F32.A Depression, unspecified; F41.9 Anxiety disorder, unspecified; G47.33 Obstructive sleep apnea (adult) (pediatric); M10.9 Gout, unspecified; I08.0 Rheumatic disorders of both mitral and aortic valves; E53.8 Deficiency of other specified B group vitamins; D63.1 Anemia in chronic kidney disease; E83.42 Hypomagnesemia; K59.00 Constipation, unspecified; R09.02 Hypoxemia; D50.9 Iron deficiency anemia, unspecified; Z79.84 Long term (current) use of oral hypoglycemic drugs; Z79.01 Long term (current) use of anticoagulants; Z79.85 Long-term (current) use of injectable non-insulin antidiabetic drugs; Z79.890 Hormone replacement therapy; Z79.4 Long term (current) use of insulin; Z11.52 Encounter for screening for COVID-19
CPT/HCPCS: 71046; 74177; 80048; 80053; 81003; 81015; 82306; 82607; 82728; 82746; 82962; 83036; 83521; 83540; 83550; 83605; 83615; 83735; 84100; 84145; 85025; 85027; 85045; 86480; 87040; 87449; 87502; 87811; 87899; 93005; 96361; 96365; 96375; 97161; 97165; 99285; Q9967

== ENCOUNTER → 2025-05-11 10:02 | Outpatient (REF) | payer MEDICARE, OTHER, SELFPAY | LOC: HWRCS 10:02 | PROVIDERS: ATTENDING PHYSICIAN Internal Medicine Cardiovascular Disease | DX: I35.0 Nonrheumatic aortic (valve) stenosis (principal); I48.19 Other persistent atrial fibrillation | CPT/HCPCS: 93306 ==